=== PATIENT | female | born 1955 | race African-American/Black ===

== ENCOUNTER 2021-10-08 10:53 | Emergency (ER) | payer MEDICARE, OTHER, SELFPAY ==
--- NOTE | ~2021-10-08 | XR_ITS ---
EXAMINATION: XR chest 2V DATE: 10/08/2021 11:24 INDICATION: Shortness of breath and cough TECHNIQUE: PA and lateral views of the chest are obtained. COMPARISON: None available FINDINGS: The lungs are free of acute opacities. There is no pleural effusion or pneumothorax. The ca rdiomediastinal silhouette is normal. There is moderate thoracic spondylosis. Surgical clips in the r ight upper quadrant are likely from prior cholecystectomy. Retained neurostimulator leads are present in the central spinal canal of the thoracic spine. IMPRESSION: 1. No acute cardiopulmonary abnormality. Reviewed, dictated and finalized at location A. NSED CLINICAL PSYCHOLOGIST
[2021-10-08 10:56] VITALS: BP 198/118; PULSE 119; RESP 22; TEMP 37.8; O2SAT 99
--- NOTE | 2021-10-08 10:58 | ECG_ITS ---
Measurements Intervals [place] Rate: 93 P: 8 IN: 175 QRS: 30 QRSD: 84 T: 52 QT: 345 QTc: 430 Interpretive Statements SINUS RHYTHM NORMAL ECG Electronically Signed On 10-08-2021 13:23:57 HANDICAPPED TEACHER by Luis Felipe Azul D.O.
[2021-10-08 11:32] LABS: Basophils Percent Auto 0.6 % (0.2-1.2); Eosinophils Absolute Auto 0.1 K/mm3 (0-0.3); Eosinophils Percent Auto 1.7 % (0-4.4); Hematocrit 36.1 % (37.0-47.0); Hemoglobin 12.2 g/dL (12.0-15.0); Immature Granulocyte Absolute 0.02 K/mm3 (0.00-0.031); Immature Granulocyte Percent A 0.4 % (0-0.5); Lymphocytes Percent Auto 29.7 % (18.3-44.2); Mean Corpuscular HGB Conc 33.8 g/dl (32-36); Mean Corpuscular Volume 97.6 fl (80-100); Mean Platelet Volume 8.6 fl (7.4-10.4); Monocytes Absolute Auto 0.7 K/mm3 (0.1-0.6); Neutrophils Percent Auto 54.6 % (45.5-73.1); Platelet Count Result 219 k/mm3 (150-375); Red Cell Distribution Width 13.7 % (11.5-14.5); White Blood Count 5.4 K/mm3 (4.5-10.0)
[2021-10-08 11:42] LABS: INR 0.9; Prothrombin Time 12.4 Seconds (11.1-14.7)
[2021-10-08 11:46] LABS: Alanine Aminotransferase 21 U/L (4-35); Albumin Level 4.2 g/dL (3.5-5.1); Alkaline Phosphatase 93 U/L (38-126); Anion Gap 6 mmol/L (8-16); Aspartate Amino Transferase 38 U/L (14-36); Bilirubin,Total 0.3 mg/dL (0.2-1.3); Blood Urea Nitrogen 11 mg/dL (7-17); Calcium 9.5 mg/dL (8.4-10.2); Carbon Dioxide 32 mmol/L (22-30); Chloride 101 mmol/L (98-107); Estimated CRCL calculation 69 ml/min; Estimated Glomerular Filt Rate > 60; Glucose 93 mg/dL (65-110); Potassium 3.6 mmol/L (3.4-5.0); Sodium 139 mmol/L (137-145)
[2021-10-08 12:13] VITALS: BP 132/85; PULSE 92; RESP 17; O2SAT 98
[2021-10-08] MEDS: SODIUM CHLORIDE 0.9% IV 1,000 ML 999 ML IV CONT (12:21)
[2021-10-08] MEDS: ACETAMINOPHEN 500 MG TABLET 1000 MG PO (12:21)
[2021-10-08 14:09] VITALS: BP 121/74; PULSE 83; RESP 22; O2SAT 100
--- NOTE | 2021-10-08 14:19 | ED.FEVER ---
HPI - Fever General Chief Complaint: Fever Stated Complaint: fever,vomiting, sob Time Seen by Provider: 10/08/21 11:52 History of Present Illness HPI Narrative: Patient is a 66-year-old female who presents ER with cold symptoms. Reports over the last 4 days she has been having runny nose with sore throat and productive cough. She has been having subjective fevers and chills. She has been exposed to 2 of her grandchildren who were sick. They were sent home from school twice due to illness. They have been swabbed for Covid and were negative. Patient has been vaccinated for Covid but has not yet received a booster shot. She has no loss of taste or smell. Patient endorses that she has been having vomiting but no diarrhea. Related Data Allergies Allergy/AdvReac Type Severity Reaction Status Date / Time tetracycline Allergy Unknown Swelling Verified 10/08/21 11:14 Review of Systems Review of Systems: All systems reviewed & are unremarkable except as noted in HPI and below Constitutional: Constitutional: Reports chills, Reports fatigue and Reports fever(s) ENT: Reports nasal congestion and Reports sore throat Cardiovascular: Cardiovascular: Denies chest pain, Denies rapid heart rate and Denies radiating jaw, neck or arm pain Respiratory: Respiratory: Reports cough, Denies dyspnea and Denies wheezing Gastrointestinal: Gastrointestinal: Denies abdominal pain, Denies diarrhea, Reports nausea and Reports vomiting Genitourinary: Genitourinary: Denies dysuria and Denies flank pain PMFSH Past Medical History Medical History (Updated 10/08/21 @ 14:51 by Haroldo Lainez MD) DVT (deep venous thrombosis) GERD (gastroesophageal reflux disease) Surgical History Surgical History (Updated 10/08/21 @ 14:22 by Haroldo Lainez MD) History of back surgery History of cholecystectomy History of hysterectomy Social History Social History (Updated 10/08/21 @ 14:22 by Haroldo Lainez MD) Smoking status: Never smoker Exam Narrative: GENERAL: Well-appearing, well-nourished, and in no acute distress. HEAD: Normocephalic, atraumatic. EYES: PERRL and EOMI. CHEST: Clear to auscultation. No respiratory distress. HEART: Regular rate and rhythm. Normal peripheral pulses. ABDOMEN: Soft, nontender, nondistended. EXTREMITIES: Normal range of motion. No edema. SKIN: Warm, dry, no rash. NEURO: Alert and oriented x3. PSYCH: Normal mood and affect. Course Course Emergency Course: Patient feels improved with Tylenol and IV fluid. Swab for Covid. Discussed that she should self isolate until she has a negative Covid test. Patient verbalized understanding. Discharge home. Vital Signs Vital signs: Vital Signs Temperature 100.1 F H 10/08/21 10:56 Pulse Rate 119 H 10/08/21 10:56 Respiratory Rate 22 H 10/08/21 10:56 Blood Pressure 198/118 H 10/08/21 10:56 Pulse Oximetry 99 10/08/21 10:56 Temperature 100.1 F H 10/08/21 10:56 Pulse Rate 83 10/08/21 14:09 Respiratory Rate 22 H 10/08/21 14:09 Blood Pressure 121/74 10/08/21 14:09 Pulse Oximetry 100 10/08/21 14:09 MDM - Fever Lab Data Result diagrams: 10/08/21 11:26 10/08/21 11:26 Labs: Lab Results 10/08/21 10/08/21 10/08/21 Range/Units 11:26 11:26 11:26 WBC 5.4 (4.5-10.0) K/mm3 RBC 3.70 L (4.2-5.4) M/mm3 Hgb 12.2 (12.0-15.0) g/dL Hct 36.1 L (37.0-47.0) % MCV 97.6 (80-100) fl MCH 33.0 (26-34) pg MCHC 33.8 (32-36) g/dl RDW 13.7 (11.5-14.5) % Plt Count 219 (150-375) k/mm3 MPV 8.6 (7.4-10.4) fl Immature Gran % (Auto) 0.4 (0-0.5) % Neut % (Auto) 54.6 (45.5-73.1) % Lymph % (Auto) 29.7 (18.3-44.2) % [place] % (Auto) 13.0 H (2.6-8.5) % Eos % (Auto) 1.7 (0-4.4) % Baso % (Auto) 0.6 (0.2-1.2) % Lymph # (Auto) 1.60 (0.9-3.2) K/mm3 [place] # (Auto) 0.7 H (0.1-0.6) K/mm3 Eos # (Auto) 0.1 (0-0.3) K/mm3 Baso # (Auto) 0.0 (0.0
[2021-10-08 15:38] VITALS: BP 121/74; PULSE 80; RESP 18; O2SAT 100
[2021-10-09 20:05] LABS: SARS-CoV-2 RNA PCR Negative
== END 2021-10-08 15:39 | disposition home or self-care (01) ==
PROVIDERS: Emergency Medicine; Emergency Provider Emergency Medicine
DX: B34.9 Viral infection, unspecified (principal); Z20.822 Contact with and (suspected) exposure to COVID-19; K21.9 Gastro-esophageal reflux disease without esophagitis; Z86.718 Personal history of other venous thrombosis and embolism
CPT/HCPCS: 36415; 71046; 80053; 85025; 85610; 85730; 93005; 96360; 99284; A9270; C9803; J7030; U0003; U0005

== ENCOUNTER 2021-11-09 11:59 | Emergency (ER) | payer MEDICARE, OTHER, SELFPAY ==
[2021-11-09 12:12] VITALS: BP 156/98; PULSE 121; RESP 27; TEMP 37.4; O2SAT 92
[2021-11-09] MEDS: ONDANSETRON HCL ODT 4 MG TABLET PO (13:53)
[2021-11-09] MEDS: diazePAM (*CRX) 5 MG TABLET PO (13:53)
[2021-11-09] MEDS: HYDROmorphone HCL INJ (*CRX) 1 MG/ML SYR IM (13:54)
[2021-11-09 13:55] VITALS: BP 138/85; PULSE 101; RESP 26; O2SAT 100
--- NOTE | 2021-11-09 14:20 | ED.GENADULT ---
HPI - General Adult General Chief complaint: Back Pain/Injury Stated complaint: stiff neck, head, and fever Time Seen by Provider: 11/09/21 12:47 Source: patient Mode of arrival: ambulatory Limitations: no limitations History of Present Illness HPI narrative: Patient is 66 years old -[place] female presents with generalized back pain. Patient had 9 back surgery over years. Patient had a lot of physical work for the [employer] with a lot of cooking, standing and bending 1 day later patient developed diffuse back pain worse with any movement, better remaining still. Patient denying any fever chills, nausea vomiting, patient is fully vaccinated and boosted for COVID-19. Tested negative for Covid 2 days ago. Patient denies radiation of pain, chest pain, shortness of breath, headache. Currently patient on [place] and Flexeril Related Data Allergies Allergy/AdvReac Type Severity Reaction Status Date / Time tetracycline Allergy Unknown Swelling Verified 11/09/21 12:55 Review of Systems Review of Systems: CONSTITUTIONAL: Denies fever, chills, or sweats. EYES: Denies visual changes, redness, or discharge. ENT: Denies rhinorrhea, congestion, sore throat, or otalgia. CARDIOVASCULAR: Denies chest pain, palpitations, or edema. RESPIRATORY: Denies cough or dyspnea. GASTROINTESTINAL: Denies abdominal pain, nausea, vomiting, or diarrhea. GENITOURINARY: Denies dysuria or hematuria. SKIN: Denies rash or itching. MUSCULOSKELETAL: Denies back pain, joint pain, or myalgia. NEUROLOGIC: Denies headache, numbness, or weakness. PSYCHIATRIC: Denies anxiety or depression. PMFSH Past Medical History Medical History DVT (deep venous thrombosis) GERD (gastroesophageal reflux disease) Surgical History Surgical History History of back surgery History of cholecystectomy History of hysterectomy Social History Social History Smoking status: Never smoker Exam Narrative: General appearance: Well-developed, well-nourished Skin: Normal color Head: Normocephalic, nontraumatic Eyes: Clear conjunctiva ENT: Oropharynx normal, ears normal, nose normal Neck: Supple, nontender Chest and respiratory: Airway patent, no respiratory distress, no accessory muscle use Heart: Regular rate/rhythm Abdomen: Soft, nontender, no organomegaly, quiet bowel sounds Vascular: Normal peripheral pulses, normal capillary refill. Musculoskeletal: Generalized severe tenderness all over the back with light touch. No bruises, no swelling, no rash Neurologic: Alert and oriented ?3, STOVE CARRIAGE OPERATOR is normal as tested, no gross motor deficit Course Course Emergency Course: Improving Vital Signs Vital signs: Vital Signs Temperature 37.4 C 11/09/21 12:12 Pulse Rate 121 H 11/09/21 12:12 Respiratory Rate 27 H 11/09/21 12:12 Blood Pressure 156/98 H 11/09/21 12:12 Pulse Oximetry 92 11/09/21 12:12 Temperature 37.4 C 11/09/21 12:12 Pulse Rate 101 H 11/09/21 13:55 Respiratory Rate 26 H 11/09/21 13:55 Blood Pressure 138/85 11/09/21 13:55 Pulse Oximetry 100 11/09/21 13:55 Medical Decision Making MDM Narrative Medical decision making narrative: Musculoskeletal pain Vital Signs Vital Signs: Vital Signs Temperature 37.4 C 11/09/21 12:12 Pulse Rate 121 H 11/09/21 12:12 Respiratory Rate 27 H 11/09/21 12:12 Blood Pressure 156/98 H 11/09/21 12:12 Pulse Oximetry 92 11/09/21 12:12 Temperature 37.4 C 11/09/21 12:12 Pulse Rate 101 H 11/09/21 13:55 Respiratory Rate 26 H 11/09/21 13:55 Blood Pre
== END 2021-11-09 15:00 | disposition home or self-care (01) ==
PROVIDERS: Emergency Provider Emergency Medicine
DX: M54.9 Dorsalgia, unspecified (principal); Z86.718 Personal history of other venous thrombosis and embolism; K21.9 Gastro-esophageal reflux disease without esophagitis
CPT/HCPCS: 96372; 99283; A9270; J1170

== ENCOUNTER 2021-12-04 14:06 | Emergency (ER) | payer MEDICARE, OTHER, SELFPAY ==
[2021-12-04 14:21] VITALS: BP 159/85; PULSE 82; RESP 16; TEMP 36.6; O2SAT 100
== END 2021-12-04 15:40 | disposition left against medical advice (07) ==
LOC: ANHED 15:46
DX: S91.001A Unspecified open wound, right ankle, initial encounter (principal)
CPT/HCPCS: 99199

== ENCOUNTER 2022-02-21 03:05 | Emergency (ER) | payer MEDICARE, OTHER, SELFPAY ==
[2022-02-21 03:02] VITALS: BP 143/90; PULSE 122; RESP 20; TEMP 37.6; O2SAT 97
--- NOTE | 2022-02-21 03:13 | ED.BACK ---
HPI - Back Pain/Injury General Chief Complaint: Back Pain/Injury Stated Complaint: EXTREME BACK PAIN Source: patient and EMS Mode of arrival: EMS Limitations: no limitations History of Present Illness HPI Narrative: 66-year-old female brought in by ambulance secondary to pain in her back. She has had 9 back surgeries. She takes [place] up to every 6 hours to help control her pain on a chronic basis. She states today she all of a sudden had increased pain throughout her back with spasm. She denies any recent trauma or falls. Skin no pain rating down her leg. Denies any urinary bladder complaints associated with this. EMS could not get an IV established subsequently given morphine 6 mg IM prior to arrival. When she arrived here she was still having significant pain. Related Data Allergies Allergy/AdvReac Type Severity Reaction Status Date / Time tetracycline Allergy Unknown Swelling Verified 11/09/21 12:55 Review of Systems Review of Systems: CONSTITUTIONAL: Denies fever, chills, or sweats. EYES: Denies visual changes, redness, or discharge. ENT: Denies rhinorrhea, congestion, sore throat, or otalgia. CARDIOVASCULAR: Denies chest pain, palpitations, or edema. RESPIRATORY: Denies cough or dyspnea. GASTROINTESTINAL: Denies abdominal pain, nausea, vomiting, or diarrhea. GENITOURINARY: Denies dysuria or hematuria. SKIN: Denies rash or itching. MUSCULOSKELETAL: Significant pain in her pack. No pain into her extremities. NEUROLOGIC: Denies headache, numbness, or weakness. PSYCHIATRIC: Denies anxiety or depression. PMFSH Past Medical History Medical History DVT (deep venous thrombosis) GERD (gastroesophageal reflux disease) Surgical History Surgical History History of back surgery History of cholecystectomy History of hysterectomy Social History Social History Smoking status: Never smoker Exam Narrative: APPEARANCE: Well appearing, no pain or distress, well-nourished. Head normocephalic and atraumatic. EYES: PERRLA/EOMI, conjunctivae very clear. NOSE: Normal with no drainage EARS:TMS clear Rachel Batista, with good light reflex. THROAT: Pharynx clear, no exudate. NECK: Supple. No adenopathy, no masses. RESPIRATORY: Airway patent, respirations nonlabored. Clear to auscultation bilaterally, no rales, rhonchi, wheezing. CARDIOVASCULAR: Regular rate and rhythm without murmurs, rubs, or gallops. ABDOMINAL: Soft, nontender, nondistended, no hepatosplenomegaly Musculoskeletal: Tenderness palpation throughout the lower thoracic and upper lumbar region. NEURO: Alert. Cranial nerves II through XII intact. Normal gait. Good coordination. Nonfocal examination. SKIN:: Warm, dry. Normal Color PSYCHIATRIC: Normal affect/mood, normal interaction Course Reevaluation(s) Reevaluation #1: Reevaluated the patient and she is much more calm and her pain is starting to slide at this point. Date: 02/21/22 Time: 03:54 Vital Signs Vital signs: Vital Signs Temperature 99.6 F 02/21/22 03:02 Pulse Rate 122 H 02/21/22 03:02 Respiratory Rate 20 02/21/22 03:02 Blood Pressure 143/90 H 02/21/22 03:02 Pulse Oximetry 97 02/21/22 03:02 Temperature 99.6 F 02/21/22 03:02 Pulse Rate 123 H 02/21/22 04:15 Respiratory Rate 18 02/21/22 04:15 Blood Pressure 150/77 H 02/21/22 04:15 Pulse Oximetry 95 02/21/22 04:15 MDM - Back Pain/Injury MDM Narrative Medical decision making narrative: Patient got significant relief of the pain with the medication she was given. She is eager to go home at this time. She does have a cane at home but I advised her to get a walker to help stabilize her self. She is to continue her current home medications. Differential Diagnosis Differential diagnosis: Likely strain of lumbar region and thoracic back pain Discharge Plan Discharge
[2022-02-21] MEDS: MORPHINE SULFATE (*CRX) 4 MG/ML INJ IV PUSH (04:01)
[2022-02-21] MEDS: diazePAM (*CRX) 5 MG TABLET PO (04:07)
[2022-02-21 04:15] VITALS: BP 150/77; PULSE 123; RESP 18; O2SAT 95
[2022-02-21 05:23] VITALS: BP 152/70; PULSE 104; RESP 20; O2SAT 97
== END 2022-02-21 05:29 | disposition home or self-care (01) ==
PROVIDERS: Emergency Provider Emergency Medicine
DX: M54.6 Pain in thoracic spine (principal); Z86.718 Personal history of other venous thrombosis and embolism; K21.9 Gastro-esophageal reflux disease without esophagitis
CPT/HCPCS: 96374; 96375; 99284; A9270; J1100; J2270

== ENCOUNTER 2022-04-20 20:29 | Emergency (ER) | payer MEDICARE, OTHER, SELFPAY ==
[2022-04-20 20:36] VITALS: BP 165/93; PULSE 118; RESP 20; TEMP 36.3; O2SAT 100
[2022-04-20 22:09] VITALS: BP 136/88; PULSE 106; RESP 17; O2SAT 100
--- NOTE | 2022-04-20 22:59 | ED.GENADULT ---
HPI - General Adult General Chief complaint: Unspecified Stated complaint: bilateral leg swelling Time Seen by Provider: 04/20/22 22:10 Source: patient History of Present Illness HPI narrative: Patient presents with lower extremity edema. Reports a recent admission to [facility]. She had a blood infection and treated in the hospital for approximately 2 weeks. In she was discharged to rehab facility for strengthening. She was discharged home about a week ago was doing home rehab and prominently doing well. Yesterday she noted swelling in her legs and it seems worse today so she came to the ER for further evaluation. She denies any chest pain or shortness of breath denies any fevers cough or congestion. She does report a history of DVTs but is on Eliquis reports is very good about taking her medications. Patient reports she was previously on furosemide but she was discontinued that when she left the hospital. She denies prior history of heart failure. Related Data Allergies Allergy/AdvReac Type Severity Reaction Status Date / Time tetracycline Allergy Unknown Swelling Verified 04/20/22 22:10 pancrelipase Allergy Other Verified 04/20/22 22:10 fentanyl AdvReac Confusion Verified 04/20/22 22:10 Review of Systems Review of Systems: CONSTITUTIONAL: Denies fever, chills, or sweats. EYES: Denies visual changes, redness, or discharge. ENT: Denies rhinorrhea, congestion, sore throat, or otalgia. CARDIOVASCULAR: Denies chest pain, palpitations, or edema. RESPIRATORY: Denies cough or dyspnea. GASTROINTESTINAL: Denies abdominal pain, nausea, vomiting, or diarrhea. GENITOURINARY: Denies dysuria or hematuria. SKIN: Denies rash or itching. MUSCULOSKELETAL: Denies back pain, joint pain, or myalgia. NEUROLOGIC: Denies headache, numbness, dizziness, or weakness. PSYCHIATRIC: Denies anxiety or depression. All systems reviewed & are unremarkable except as noted in HPI and below PMFSH Past Medical History Medical History DVT (deep venous thrombosis) GERD (gastroesophageal reflux disease) Surgical History Surgical History History of back surgery History of cholecystectomy History of hysterectomy Social History Social History Smoking status: Never smoker Exam Narrative: GENERAL: Well-appearing, well-nourished, and in no acute distress. HEAD: Normocephalic, atraumatic. EYES: PERRLA and EOMI. ENT: Nares clear, no rhinorrhea or epistaxis. Mucous membranes moist. NECK: Supple. No masses. No JVD CHEST: Clear to auscultation. No respiratory distress. No wheezes rales or rhonchi HEART: Regular rate and rhythm. No murmur heard. Normal peripheral pulses. ABDOMEN: Soft, nontender, nondistended, normal active bowel sounds. EXTREMITIES: Normal range of motion. 1+ pitting edema symmetric to the distal lower leg SKIN: Warm, dry, no rash. NEURO: No focal deficits. Alert and oriented x3. PSYCH: Normal mood and affect. Course Reevaluation(s) Reevaluation #1: Patient resting comfortably results and plan reviewed with patient. Patient is comfortable outpatient plan. Patient was previous aware of her anemia history she is currently on iron. Date: 04/20/22 Time: 23:32 Vital Signs Vital signs: Vital Signs Temperature 36.3 C L 04/20/22 20:36 Pulse Rate 118 H 04/20/22 20:36 Respiratory Rate 20 04/20/22 20:36 Blood Pressure 165/93 H 04/20/22 20:36 Pulse Oximetry 100 04/20/22 20:36 Oxygen Delivery Room Air 04/20/22 20:36 Temperature 36.3 C L 04/20/22 20:36 Pulse Rate 95 04/20/22 23:32 Respiratory Rate 18 04/20/22 23:32 Blood Pressure 123/90 04/20/22 23:32 Pulse Oximetry 97 04/20/22 23:32 Oxygen Delivery Room Air 04/20/22 20:36 Medical Decision Making MDM Narrative Medical decision making narrative: H&P as above, vs initia
[2022-04-20 23:00] LABS: Basophils Percent Auto 0.2 % (0.2-1.2); Eosinophils Absolute Auto 0.1 K/mm3 (0-0.3); Eosinophils Percent Auto 1.6 % (0-4.4); Hematocrit 29.5 % (37.0-47.0); Hemoglobin 8.9 g/dL (12.0-15.0); Immature Granulocyte Absolute 0.01 K/mm3 (0.00-0.031); Immature Granulocyte Percent A 0.2 % (0-0.5); Lymphocytes Absolute Auto 1.83 K/mm3 (0.9-3.2); Lymphocytes Percent Auto 40.7 % (18.3-44.2); Mean Corpuscular HGB Conc 30.2 g/dl (32-36); Mean Corpuscular Hemoglobin 30.7 pg (26-34); Mean Corpuscular Volume 101.7 fl (80-100); Monocytes Absolute Auto 0.5 K/mm3 (0.1-0.6); Neutrophils Absolute Auto 2.1 K/mm3 (1.3-6.7); Neutrophils Percent Auto 47.3 % (45.5-73.1); Platelet Count Result 245 k/mm3 (150-375); Red Cell Distribution Width 15.9 % (11.5-14.5); White Blood Count 4.5 K/mm3 (4.5-10.0)
[2022-04-20 23:12] LABS: Alanine Aminotransferase 15 U/L (6-35); Albumin Level 3.6 g/dL (3.5-5.1); Alkaline Phosphatase 83 U/L (38-126); Anion Gap 4 mmol/L (8-16); Aspartate Amino Transferase 33 U/L (14-36); Bilirubin,Total 0.1 mg/dL (0.2-1.3); Blood Urea Nitrogen 14 mg/dL (7-17); Calcium 8.7 mg/dL (8.4-10.2); Carbon Dioxide 29 mmol/L (22-30); Chloride 103 mmol/L (98-107); Estimated Glomerular Filt Rate > 60; Glucose 93 mg/dL (65-110); Potassium 3.7 mmol/L (3.4-5.0); Sodium 136 mmol/L (137-145)
--- NOTE | 2022-04-20 23:31 | PC.NURSE ---
Assuming care of pt.
[2022-04-20 23:32] VITALS: BP 123/90; PULSE 95; RESP 18; O2SAT 97
== END 2022-04-21 00:12 | disposition home or self-care (01) ==
PROVIDERS: Emergency Provider Emergency Medicine; PCP Family Medicine Sports Medicine
DX: R60.0 Localized edema (principal); Z86.718 Personal history of other venous thrombosis and embolism; K21.9 Gastro-esophageal reflux disease without esophagitis
CPT/HCPCS: 36415; 80053; 85025; 99283

== ENCOUNTER 2022-04-27 11:43 | Outpatient (CLI) | payer MEDICARE, OTHER, SELFPAY ==
[2022-04-27 12:26] LABS: Basophils Percent Auto 0.3 % (0.2-1.2); Eosinophils Absolute Auto 0.1 K/mm3 (0-0.3); Eosinophils Percent Auto 1.3 % (0-4.4); Hematocrit 29.9 % (37.0-47.0); Hemoglobin 9.1 g/dL (12.0-15.0); Immature Granulocyte Absolute 0.01 K/mm3 (0.00-0.031); Immature Granulocyte Percent A 0.3 % (0-0.5); Lymphocytes Absolute Auto 1.49 K/mm3 (0.9-3.2); Lymphocytes Percent Auto 40.1 % (18.3-44.2); Mean Corpuscular HGB Conc 30.4 g/dl (32-36); Mean Corpuscular Hemoglobin 30.8 pg (26-34); Mean Corpuscular Volume 101.4 fl (80-100); Mean Platelet Volume 8.3 fl (7.4-10.4); Monocytes Absolute Auto 0.4 K/mm3 (0.1-0.6); Monocytes Percent Auto 9.7 % (2.6-8.5); Neutrophils Absolute Auto 1.8 K/mm3 (1.3-6.7); Neutrophils Percent Auto 48.3 % (45.5-73.1); Platelet Count Result 273 k/mm3 (150-375); Red Blood Count 2.95 M/mm3 (4.2-5.4); Red Cell Distribution Width 16.8 % (11.5-14.5); White Blood Count 3.7 K/mm3 (4.5-10.0)
[2022-04-27 12:28] LABS: Alanine Aminotransferase 11 U/L (6-35); Albumin Level 3.5 g/dL (3.5-5.1); Alkaline Phosphatase 80 U/L (38-126); Anion Gap 4 mmol/L (8-16); Aspartate Amino Transferase 29 U/L (14-36); Bilirubin,Total 0.1 mg/dL (0.2-1.3); Blood Urea Nitrogen 7 mg/dL (7-17); Calcium 8.4 mg/dL (8.4-10.2); Carbon Dioxide 30 mmol/L (22-30); Chloride 105 mmol/L (98-107); Estimated Glomerular Filt Rate > 60; Glucose 88 mg/dL (65-110); Potassium 3.6 mmol/L (3.4-5.0); Sodium 139 mmol/L (137-145)
[2022-04-27 12:39] LABS: Iron 52 ug/dL (37-170)
[2022-04-27 12:48] LABS: Percent Iron Saturation 26 % (20-50)
== END 2022-04-27 11:44 | disposition home or self-care (01) ==
PROVIDERS: PCP Family Medicine Sports Medicine; Visit Provider Family Medicine Sports Medicine
DX: Z01.89 Encounter for other specified special examinations (principal); I10 Essential (primary) hypertension; D50.8 Other iron deficiency anemias
CPT/HCPCS: 36415; 80053; 83540; 83550; 85025

== ENCOUNTER 2022-07-25 11:30 | Outpatient (CLI) | payer MEDICARE, OTHER, SELFPAY ==
[2022-07-25 12:28] LABS: Anion Gap 11 mmol/L (8-16); Blood Urea Nitrogen 12 mg/dL (7-17); Calcium 9.6 mg/dL (8.4-10.2); Carbon Dioxide 28 mmol/L (22-30); Chloride 101 mmol/L (98-107); Estimated Glomerular Filt Rate > 60; Glucose 87 mg/dL (65-110); Potassium 3.4 mmol/L (3.4-5.0); Sodium 140 mmol/L (137-145)
== END 2022-07-25 11:31 | disposition home or self-care (01) ==
PROVIDERS: PCP Family Medicine Sports Medicine; Visit Provider Family Medicine Sports Medicine
DX: I82.5Z1 Chronic embolism and thrombosis of unspecified deep veins of right distal lower extremity (principal); M51.36 Other intervertebral disc degeneration, lumbar region; I25.10 Atherosclerotic heart disease of native coronary artery without angina pectoris; M43.17 Spondylolisthesis, lumbosacral region; Z79.01 Long term (current) use of anticoagulants; M54.42 Lumbago with sciatica, left side; M54.41 Lumbago with sciatica, right side; G89.29 Other chronic pain; I70.0 Atherosclerosis of aorta; I86.8 Varicose veins of other specified sites; M35.9 Systemic involvement of connective tissue, unspecified; I48.91 Unspecified atrial fibrillation
CPT/HCPCS: 36415; 80048

== ENCOUNTER 2022-08-07 11:11 | Outpatient (CLI) | payer MEDICARE, OTHER, SELFPAY ==
[2022-08-07 12:16] LABS: Anion Gap 17 mmol/L (8-16); Blood Urea Nitrogen 14 mg/dL (7-17); Calcium 9.3 mg/dL (8.4-10.2); Carbon Dioxide 19 mmol/L (22-30); Chloride 104 mmol/L (98-107); Estimated Glomerular Filt Rate > 60; Glucose 79 mg/dL (65-110); Potassium 4.7 mmol/L (3.4-5.0); Sodium 140 mmol/L (137-145)
== END 2022-08-07 11:12 | disposition home or self-care (01) ==
LOC: ANHLAB 11:17
PROVIDERS: PCP Family Medicine Sports Medicine
DX: I10 Essential (primary) hypertension (principal)
CPT/HCPCS: 36415; 80048; 83735

== ENCOUNTER 2023-08-12 11:22 | Outpatient (CLI) | payer MEDICARE, OTHER, SELFPAY ==
[2023-08-12 12:05] LABS: Basophils Percent Auto 0.4 % (0.2-1.2); Eosinophils Absolute Auto 0.1 K/mm3 (0-0.3); Eosinophils Percent Auto 2.7 % (0-4.4); Hematocrit 35.7 % (37.0-47.0); Lymphocytes Absolute Auto 1.36 K/mm3 (0.9-3.2); Lymphocytes Percent Auto 51.7 % (18.3-44.2); Mean Corpuscular HGB Conc 30.8 g/dl (32-36); Mean Corpuscular Hemoglobin 31.3 pg (26-34); Mean Corpuscular Volume 101.4 fl (80-100); Mean Platelet Volume 8.6 fl (7.4-10.4); Monocytes Absolute Auto 0.3 K/mm3 (0.1-0.6); Monocytes Percent Auto 10.6 % (2.6-8.5); Neutrophils Absolute Auto 0.9 K/mm3 (1.3-6.7); Neutrophils Percent Auto 34.6 % (45.5-73.1); Platelet Count Result 185 k/mm3 (150-375); Red Blood Count 3.52 M/mm3 (4.2-5.4); Red Cell Distribution Width 14.4 % (11.5-14.5); White Blood Count 2.6 K/mm3 (4.5-10.0)
[2023-08-12 12:15] LABS: Alanine Aminotransferase 23 U/L (6-35); Albumin Level 4.1 g/dL (3.5-5.1); Alkaline Phosphatase 91 U/L (38-126); Anion Gap 7 mmol/L (8-16); Aspartate Amino Transferase 41 U/L (14-36); Bilirubin,Total 0.5 mg/dL (0.2-1.3); Blood Urea Nitrogen 21 mg/dL (7-17); Carbon Dioxide 27 mmol/L (22-30); Chloride 101 mmol/L (98-107); Cholesterol 179 mg/dL (0-200); Estimated Glomerular Filt Rate > 60; Glucose 97 mg/dL (65-110); HDL Direct 45 mg/dL; Potassium 4.2 mmol/L (3.4-5.0); Sodium 135 mmol/L (137-145); Triglycerides 127 mg/dL (<150)
[2023-08-12 12:26] LABS: LDL Cholesterol Direct 85 mg/dL
[2023-08-12 13:03] LABS: Iron 91 ug/dL (37-170)
[2023-08-12 13:12] LABS: Percent Iron Saturation 40 % (20-50)
== END 2023-08-12 11:23 | disposition home or self-care (01) ==
LOC: ANHLAB 11:26
PROVIDERS: PCP Family Medicine Sports Medicine; Visit Provider Family Medicine Sports Medicine
DX: R11.0 Nausea (principal); Z13.6 Encounter for screening for cardiovascular disorders; K22.719 Barrett's esophagus with dysplasia, unspecified; G43.901 Migraine, unspecified, not intractable, with status migrainosus; M51.36 Other intervertebral disc degeneration, lumbar region; M54.42 Lumbago with sciatica, left side; M54.41 Lumbago with sciatica, right side; G89.29 Other chronic pain; M79.606 Pain in leg, unspecified; I83.91 Asymptomatic varicose veins of right lower extremity; K63.5 Polyp of colon; I25.10 Atherosclerotic heart disease of native coronary artery without angina pectoris; I10 Essential (primary) hypertension
CPT/HCPCS: 36415; 80053; 80061; 82728; 83540; 83550; 85025

== ENCOUNTER 2023-12-31 18:23 | Emergency (ER) | payer MEDICARE, OTHER, SELFPAY ==
--- NOTE | ~2023-12-31 | US_ITS ---
EXAMINATION: US venous doppler LE RT DATE: 12/31/2023 19:54 INDICATION: Right lower limb pain. TECHNIQUE: Grayscale ultrasound images without and with compression and Doppler ultrasound images of the right lower extremity veins were obtained. COMPARISON: None. FINDINGS: The visualized portions of right common femoral vein, profunda (deep) femoral vein, femoral vein, pop liteal vein, peroneal veins, posterior tibial veins, and greater saphenous vein outflow are patent. IMPRESSION: 1. No deep venous thrombosis. Reviewed, dictated and finalized at location E. [employer]
[2023-12-31 18:30] VITALS: BP 148/100; PULSE 99; RESP 18; TEMP 36.8; O2SAT 100
--- NOTE | 2023-12-31 18:37 | ED.EXTPRO ---
HPI - Extremity Problem General Chief complaint: Skin/Abscess/Foreign Body <Evelia Ruggiero PA-C - Last Filed: 01/01/24 18:46> Stated complaint: wound to leg <Evelia Ruggiero PA-C - Last Filed: 01/01/24 18:46> Time Seen by Provider: 12/31/23 18:37 <Evelia Ruggiero PA-C - Last Filed: 01/01/24 18:46> Focused HPI: This is a 68 year old female that presents to the ER for right lower extremity pain. Associated with swelling. Reports history of DVT. She also has a wound on this leg that she is following with a doctor for currently and receiving wound care. Denies fever, erythema or abnormal drainage. GENERAL: Well-appearing, well-nourished, and in no acute distress. HEAD: Normocephalic, atraumatic. CHEST: Clear to auscultation. ?No respiratory distress. HEART: Regular rate and rhythm.? NEURO: ?Alert and oriented x3. Patient screened in triage and initial orders placed.? ?Additional care and disposition to be based upon?diagnostic testing and treatment. <Evelia Ruggiero PA-C - Last Filed: 01/01/24 18:46> History of Present Illness HPI Narrative: 68-year-old female present to the emergency department for evaluation of right lower extremity pain. Patient does have a prior history of DVT. Patient is following up with a surgeon for a wound her right lower extremity and did see the surgeon yesterday. Patient states that she was having the leg pain yesterday as well. Patient denies any new falls or injuries. Patient states she does take Thicket at home but ran out of Thicket today. Patient does have follow-up with her primary care physician tomorrow and anticipate she is going to be able to get a Thicket refill from her. <Eric Cevallos MD - Last Filed: 01/04/24 14:06> Related Data Home medications: Home Medications Medication Instructions Recorded Confirmed acetaminophen 650 mg 650 mg PO Q12H 06/13/23 10/16/23 tablet,extended release (Tylenol Arthritis Pain) apixaban 5 mg tablet 5 mg PO BID 06/13/23 10/16/23 cholecalciferol (vitamin D3) 25 25 mcg PO DAILY 06/13/23 10/16/23 mcg (1,000 unit) capsule cranberry 400 mg capsule 400 mg PO DAILY 06/13/23 10/16/23 cyclobenzaprine 10 mg tablet 10 mg PO TID 06/13/23 10/16/23 digestive enzymes 1 cap PO DAILY 06/13/23 10/16/23 docusate sodium 100 mg capsule 100 mg PO DAILY 06/13/23 10/16/23 ferrous sulfate 325 mg (65 mg 325 mg PO DAILY 06/13/23 10/16/23 iron) tablet gabapentin 100 mg capsule 100 mg PO DAILY 06/13/23 10/16/23 hydrocodone 5 mg-acetaminophen 325 1 tablet PO QHS PRN 06/13/23 10/16/23 mg tablet lisinopril 5 mg tablet 5 mg PO DAILY 06/13/23 10/16/23 [id number] tablet PO 06/13/23 10/16/23 fumarate 18 mg-folic acid 400 mcg tablet (One-A-Day Women's Complete) naloxone 0.4 mg/mL injection 0.4 mg IM Q2M PRN 06/13/23 10/16/23 syringe naproxen sodium 220 mg tablet 220 mg PO BID PRN 06/13/23 10/16/23 (Flanax (naproxen)) rosuvastatin 10 mg tablet 10 mg PO DAILY 06/13/23 10/16/23 ondansetron HCl 4 mg tablet 4 mg PO Q8H 10/16/23 10/16/23 torsemide 20 mg tablet 20 mg PO QAM 10/16/23 10/16/23 <Evelia Ruggiero PA-C - Last Filed: 01/01/24 18:46> Allergies/Adverse reactions: Allergies Allergy/AdvReac Type Severity Reaction Status Date / Time tetracycline Allergy Unknown Swelling Verified 10/16/23 10:33 pancrelipase Allergy Other Verified 10/16/23 10:33 fentanyl AdvReac Confusion Verified 10/16/23 10:33 <Evelia Ruggiero PA-C - Last Filed: 01/01/24 18:46> Review of Systems Review of Systems: All systems reviewed & are unremarkable except as noted in HPI and below <Eric Cevallos MD - Last Filed: 01/04/24 14:06> [facility] Past Medical History Medical History: Medical History Adhesive capsulitis of right shoulder DVT (deep venous thrombosis) GERD (gastroesophageal reflux disease) History of sepsis Right rotator cuff tear <MIHIR Francis L
[2023-12-31] MEDS: HYDROcodone/acetaminophen (*CRX) 5-325 MG TABLET 1 TAB (23:59)
== END 2023-12-31 23:50 | disposition home or self-care (01) ==
PROVIDERS: Emergency Provider Emergency Medicine; PCP Nurse Practitioner
DX: M79.604 Pain in right leg (principal); Z86.718 Personal history of other venous thrombosis and embolism
CPT/HCPCS: 93971; 99284; A9270

== ENCOUNTER 2024-03-31 14:04 | Outpatient (CLI) | payer MEDICARE, OTHER, SELFPAY ==
[2024-03-31 15:09] LABS: Basophils Percent Auto 0.3 % (0.2-1.2); Eosinophils Absolute Auto 0.1 K/mm3 (0-0.3); Eosinophils Percent Auto 1.3 % (0-4.4); Hematocrit 36.2 % (37.0-47.0); Hemoglobin 10.8 g/dL (12.0-15.0); Immature Granulocyte Absolute 0.01 K/mm3 (0.00-0.031); Immature Granulocyte Percent A 0.3 % (0-0.5); Lymphocytes Absolute Auto 1.64 K/mm3 (0.9-3.2); Lymphocytes Percent Auto 43.5 % (18.3-44.2); Mean Corpuscular HGB Conc 29.8 g/dl (32-36); Mean Corpuscular Hemoglobin 30.4 pg (26-34); Mean Platelet Volume 8.7 fl (7.4-10.4); Monocytes Absolute Auto 0.5 K/mm3 (0.1-0.6); Monocytes Percent Auto 11.9 % (2.6-8.5); Neutrophils Absolute Auto 1.6 K/mm3 (1.3-6.7); Neutrophils Percent Auto 42.7 % (45.5-73.1); Platelet Count Result 249 k/mm3 (150-375); Red Blood Count 3.55 M/mm3 (4.2-5.4); Red Cell Distribution Width 13.9 % (11.5-14.5); White Blood Count 3.8 K/mm3 (4.5-10.0)
[2024-04-02 21:13] LABS: Vitamin B6 15.1 ng/mL (2.1-21.7)
[2024-04-03 08:27] LABS: Vitamin B1 18 nmol/L (8-30)
== END 2024-03-31 14:05 | disposition home or self-care (01) ==
PROVIDERS: PCP Nurse Practitioner; Visit Provider Nurse Practitioner
DX: L08.9 Local infection of the skin and subcutaneous tissue, unspecified (principal); T14.8XXA Other injury of unspecified body region, initial encounter; X58.XXXA Exposure to other specified factors, initial encounter
CPT/HCPCS: 36415; 82607; 84207; 84425; 85025

== ENCOUNTER 2024-08-04 14:21 | Emergency (ER) | payer MEDICARE, OTHER, SELFPAY ==
--- NOTE | ~2024-08-04 | CT_ITS ---
EXAMINATION: CT pelvis wo con DATE: 08/04/2024 16:53 INDICATION: Low back pain post fall TECHNIQUE: Computed tomography (CT) of the pelvis was performed without intravenous contrast. Automat ed exposure control and iterative reconstruction technique were employed.The dose-length product was 471.28 mGy-cm. COMPARISON: None FINDINGS: Bone alignment is normal. No acute fracture. There is anterior spinal fusion at L5-S1 and posterior s ej fusion at the bilateral L4-5 and L5-S1 facet joints. See separate lumbar spine report for furth er detail. Bone graft harvest site at the right posterior iliac spine. Moderate osteoarthritis at the bilateral sacroiliac and hip joints. Postoperative change of prior ventral hernia mesh repair in the pelvis and lower abdomen. Visualized portions of bowels, lower pole of the right kidney and caudal t ip of the liver are unremarkable. Bladder is normal. The uterus is not identified and has likely been surgically resected. No free intraperitoneal gas or fluid. No pathologically enlarged or abdominal, pelvic or inguinal lymphadenopathy. No free fluid in the pelvis. IMPRESSION: 1. Moderate bilateral hip and sacroiliac osteoarthritis. No acute osseous abnormality. Reviewed, dictated and finalized at location A. IMPRESSION: 1. Moderate bilateral hip and sacroiliac osteoarthritis. No acute osseous abnor mality.
--- NOTE | ~2024-08-04 | CT_ITS ---
CT brain wo con Ordering provider: Pilar Neely PA-C History: 69 years Female with . syncope 07/21 . Comparison: April 19, 2015 Technique: CT of the head without contrast. Radiation reduction technique utilized. The dose-length product was 681 mGy-cm. FINDINGS: BRAIN PARENCHYMA AND CSF SPACES: Possibility of hypodensity in the fei cannot be excluded excluded a lthough this may be artifactual. If concern is present MRI is advised. No midline shift, mass effect or hemorrhage. The brain parenchyma and CSF spaces are otherwise normal. Empty sella turcica. VISUALIZED PARANASAL SINUSES: Well aerated. MASTOIDS: Well aerated. BONES: The bones appear intact. SOFT TISSUES: Visualized nasopharynx is normal. Superficial soft tissues are normal. IMPRESSION: No acute intracranial findings. Possible hypodensity in the fei. If clinically warranted MRI is advised Reviewed, dictated and finalized at location A.
--- NOTE | ~2024-08-04 | CT_ITS ---
EXAMINATION: CTA BRAIN/CAROTID DATE: 08/04/2024 20:29 INDICATION: Pontine abnormality on prior CT. Syncope. TECHNIQUE: Computed tomographic angiography (CTA) of the head and neck was performed with 100 mL Omni paque-350 intravenous contrast. Multiplanar reconstructions and maximum intensity projection 3D-recon structions of the carotid arteries and of the intracranial arteries were created by the technologist on a separate workstation. Automated exposure control and iterative reconstruction technique were emp loyed.The dose-length product was 1027.93 mGy-cm. COMPARISON: None. FINDINGS: Carotid arteries: Visualized aortic arch is normal in caliber with small amount of likely minimally significant atheros clerotic plaque and no dissection. There is minimal atherosclerotic plaque at the right common caroti d bifurcation with 0% stenosis of the right carotid bulb relative to normal distal artery lumen diame ter (NASCET criteria). There is small amount of atherosclerotic plaque with 0% stenosis of the left c arotid bulb relative to normal distal artery lumen diameter. The bilateral extracranial vertebral art eries are codominant with no stenosis. Mild dependent atelectasis in the bilateral lower lobes. Cervi cole soft tissues are unremarkable. Moderate cervical spondylosis. Chronic appearing T4 compression fr acture with 20% anterior vertebral body height loss. Intracranial arteries Vertebral arteries are codominant. There is small amount of nonhemodynamically significant atheroscle rotic plaque at the bilateral carotid siphons and along the bilateral vertebral arteries. There is no hemodynamically significant stenosis in the vertebral, basilar and internal carotid arteries. Verteb ral arteries are codominant. There are no aneurysms identified. Both A1 and P1 segments are patent. Cerebral arterial arborization appears symmetric. No abnormally enhancing brain lesions. IMPRESSION: 1. 0% stenosis of the right and left carotid bulbs relative to normal distal artery lumen diameter (N ASCET criteria). 2. Small amount of nonhemodynamically significant atherosclerotic plaque at the bilateral carotid sip hons and intracranial portions of the bilateral vertebral arteries. No aneurysm, minimally significan t stenosis or thrombosis. 3. No abnormally enhancing brain lesions. Reviewed, dictated and finalized at location A. IMPRESSION: 1. 0% stenosis of the right and left carotid bulbs relative to normal distal ar darian lumen diameter (NASCET criteria). 2. Small amount of nonhemodynamically significant atherosclerotic plaque at the bilateral carotid siphons and intracranial portions of the bilateral vertebral arteries. No aneurysm, minimally significant stenosis or thrombosis. 3. No abnormally enhancing brain lesions.
--- NOTE | ~2024-08-04 | CT_ITS ---
EXAMINATION: CT lumbar spine wo con DATE: 08/04/2024 16:52 INDICATION: Low back pain post fall TECHNIQUE: Computed tomography (CT) of the lumbar spine was performed without intravenous contrast. A utomated exposure control and iterative reconstruction technique were employed. The dose-length produ ct was 574.45 mGy-cm. COMPARISON: 09/02/2017 FINDINGS: Again seen are postoperative changes of prior L5 laminectomy and L5-S1 anterior spinal fusion with so lidly incorporated bone graft material. There is also solid posterior spinal fusion at L4-L5 and L5-S 1. Bone graft harvest site at the right posterior iliac spine. There is mild thoracolumbar kyphosis w ith chronic appearing mild anterior wedging at T11 and T12. Severe disc height loss at T11-T12 and T1 2-L1 with anterior spinal fusion across the T11-T12 disc space. Unchanged 4 mm retrolisthesis L1 on L 2. There is additional chronic mild superior endplate compression fracture at L3 which is new since t he prior study. No acute fractures identified. Moderate disc height loss at T9-T10 and T10-T11. Strea k artifact centered at the nonvisualized portion of the gallbladder fossa suggesting cholecystectomy clips. Small amount of heterotopic ossification in the subcutaneous tissues posterior to the right lo wer lumbar facet joints. Paravertebral soft tissues are otherwise unremarkable. The following disc le vels are specifically discussed: T12-L1: There is mild left and moderate right facet joint osteoarthritis. There is mild left neural f oraminal stenosis. There is no central canal stenosis. L1-L2: There is mild to moderate right and moderate left facet joint osteoarthritis. There is moderat e to severe bilateral neural foraminal stenosis. There is mild central canal stenosis. L2-L3: Disc is bulging with central disc extrusion. There is mild right and mild to moderate left fac et joint osteoarthritis. There is moderate right and moderate to severe left neural foraminal stenosi s. There is moderate central canal stenosis. L3-L4: Disc is bulging. There is moderate bilateral facet joint osteoarthritis. There is moderate dorene ateral neural foraminal stenosis. There is moderate central canal stenosis. L4-L5: Disc is bulging. Facet joints are fused with prominent hypertrophic changes. There is moderate right and mild left neural foraminal stenosis. There is moderate central canal stenosis. L5-S1: Disc space and bilateral facet joints are fused. There is no neural foraminal stenosis. There is no central canal stenosis. IMPRESSION: 1. L5-S1 anterior and L4-S1 posterior spinal fusion. No acute osseous abnormality. 2. Severe spondylosis at the thoracolumbar junction and upper lumbar spine.. Reviewed, dictated and finalized at location A. IMPRESSION: 1. L5-S1 anterior and L4-S1 posterior spinal fusion. No acute osseous abnormali ty. 2. Severe spondylosis at the thoracolumbar junction and upper lumbar spine..
[2024-08-04 14:25] VITALS: BP 144/76; PULSE 80; RESP 14; TEMP 36.2; O2SAT 97
--- NOTE | 2024-08-04 16:19 | ECG_ITS ---
Test Date: 2024-08-04 17:54:31 Measurements Intervals [place] Rate: 79 P: 8 MT: 195 QRS: 51 QRSD: 84 T: 3 QT: 387 QTc: 445 Interpretive Statements SINUS RHYTHM CONSIDER INFERIOR INFARCT, AGE INDETERMINATE BASELINE ARTIFACT- I, II, AVR, AVL, AVF ABNORMAL ECG No previous ECG available for comparison Electronically Signed On 08-04-2024 19:09:30 CDT by Luis Felipe Azul D.O.
[2024-08-04 16:50] VITALS: BP 141/77; PULSE 87; RESP 16; TEMP 36.6; O2SAT 95
--- NOTE | 2024-08-04 17:00 | ED.FALL ---
HPI - Fall General Chief Complaint: Fall <MIHIR Raman Last Filed: 08/04/24 19:35> Stated Complaint: Fall, tailbone pain, takes eliquis <MIHIR Raman Last Filed: 08/04/24 19:35> Time Seen by Provider: 08/04/24 15:47 <MIHIR Raman Last Filed: 08/04/24 19:35> Source: patient <MIHIR Raman Last Filed: 08/04/24 19:35> Mode of arrival: ambulatory <MIHIR Raman Last Filed: 08/04/24 19:35> Limitations: no limitations <MIHIR Raman Last Filed: 08/04/24 19:35> History of Present Illness HPI Narrative: Patient is a 69 y/o female who presents to the ED with c/o lower back pain. Patient reports she had a fall at home on 07/21 in which she stood up from the couch and went to get something out of her refrigerator when she fell backwards. She believes she may have lost consciousness. Unsure if she passed out. Denied feeling dizzy or lightheaded prior to the fall. States she injured her lower back and tailbone in the fall. Has had persistent pain since then. Worse with movement. She has been using a pain patch and a pain cream at home, occasionally taking her home [place] without improvement. She denies any new numbness in her lower extremities, weakness in her lower extremities, bowel or bladder incontinence. Denies any dizziness or lightheadedness since that time. Denies chest pain, shortness of breath. Denies focal weakness or numbness. Patient is on Eliquis due to history of DVT. Is compliant with this. Denies any missed doses. <MIHIR Raman Last Filed: 08/04/24 19:35> Related Data Home Medications: Home Medications Medication Instructions Recorded Confirmed acetaminophen 650 mg 650 mg PO Q12H 06/13/23 10/16/23 tablet,extended release (Tylenol Arthritis Pain) apixaban 5 mg tablet 5 mg PO BID 06/13/23 10/16/23 cholecalciferol (vitamin D3) 25 25 mcg PO DAILY 06/13/23 10/16/23 mcg (1,000 unit) capsule cranberry 400 mg capsule 400 mg PO DAILY 06/13/23 10/16/23 cyclobenzaprine 10 mg tablet 10 mg PO TID 06/13/23 10/16/23 digestive enzymes 1 cap PO DAILY 06/13/23 10/16/23 docusate sodium 100 mg capsule 100 mg PO DAILY 06/13/23 10/16/23 ferrous sulfate 325 mg (65 mg 325 mg PO DAILY 06/13/23 10/16/23 iron) tablet gabapentin 100 mg capsule 100 mg PO DAILY 06/13/23 10/16/23 hydrocodone 5 mg-acetaminophen 325 1 tablet PO QHS PRN 06/13/23 10/16/23 mg tablet lisinopril 5 mg tablet 5 mg PO DAILY 06/13/23 10/16/23 [id number]-[id number] tablet PO 06/13/23 10/16/23 fumarate 18 mg-folic acid 400 mcg tablet (One-A-Day Women's Complete) naloxone 0.4 mg/mL injection 0.4 mg IM Q2M PRN 06/13/23 10/16/23 syringe naproxen sodium 220 mg tablet 220 mg PO BID PRN 06/13/23 10/16/23 (Flanax (naproxen)) rosuvastatin 10 mg tablet 10 mg PO DAILY 06/13/23 10/16/23 ondansetron HCl 4 mg tablet 4 mg PO Q8H 10/16/23 10/16/23 torsemide 20 mg tablet 20 mg PO QAM 10/16/23 10/16/23 <Pilar Neely PA-C - Last Filed: 08/04/24 19:35> Allergies/Adverse Reactions: Allergies Allergy/AdvReac Type Severity Reaction Status Date / Time tetracycline Allergy Unknown Swelling Verified 10/16/23 10:33 pancrelipase Allergy Other Verified 10/16/23 10:33 fentanyl AdvReac Confusion Verified 10/16/23 10:33 <Pilar Neely PA-C - Last Filed: 08/04/24 19:35> Review of Systems Review of Systems: All systems reviewed & are unremarkable except as noted in HPI. <Pilar Neely PA-C - Last Filed: 08/04/24 19:35> All systems reviewed & are unremarkable except as noted in HPI and below <Pilar Neely PA-C - Last Filed: 08/04/24 19:35> [facility] Past Medical History Medical History: Medical History Adhesive capsulitis of right shoulder DVT (deep venous thrombosis) GERD (gastroesophageal reflux diseas
[2024-08-04] MEDS: HYDROcodone/acetaminophen (*CRX) 5-325 MG TABLET 1 TAB PO (17:12)
[2024-08-04 17:52] LABS: Eosinophils Percent Auto 0.9 % (0-4.4); Hematocrit 33.1 % (37.0-47.0); Hemoglobin 10.4 g/dL (12.0-15.0); Immature Granulocyte Absolute 0.01 K/mm3 (0.00-0.031); Immature Granulocyte Percent A 0.3 % (0-0.5); Lymphocytes Absolute Auto 1.59 K/mm3 (0.9-3.2); Lymphocytes Percent Auto 48.3 % (18.3-44.2); Mean Corpuscular HGB Conc 31.4 g/dl (32-36); Mean Corpuscular Hemoglobin 32.4 pg (26-34); Mean Corpuscular Volume 103.1 fl (80-100); Mean Platelet Volume 8.9 fl (7.4-10.4); Monocytes Absolute Auto 0.5 K/mm3 (0.1-0.6); Monocytes Percent Auto 14.9 % (2.6-8.5); Neutrophils Absolute Auto 1.2 K/mm3 (1.3-6.7); Neutrophils Percent Auto 35.6 % (45.5-73.1); Platelet Count Result 234 k/mm3 (150-375); Red Blood Count 3.21 M/mm3 (4.2-5.4); Red Cell Distribution Width 14.7 % (11.5-14.5); White Blood Count 3.3 K/mm3 (4.5-10.0)
[2024-08-04 17:57] LABS: Add Urine Microscopic? NO; Appearance Urine Clear (Clear); Bilirubin Urine Negative (Negative); Blood Urine Negative (Negative); Color Urine Yellow (Yellow); Glucose Urine UA Negative (Negative); Ketones Urine Negative (Negative); Leukocyte Esterase Ur Negative LEU/UL (Negative); Nitrate Urine Negative (Negative); Protein Urine Negative (Negative); Urobilinogen Urine 0.2 mg/dL (<2.0)
[2024-08-04 18:02] LABS: Alanine Aminotransferase 20 U/L (6-35); Albumin Level 4.4 g/dL (3.5-5.1); Alkaline Phosphatase 120 U/L (38-126); Anion Gap 8 mmol/L (4-12); Aspartate Amino Transferase 45 U/L (14-36); Bilirubin,Total 0.3 mg/dL (0.2-1.3); Blood Urea Nitrogen 23 mg/dL (7-17); Calcium 9.2 mg/dL (8.4-10.2); Carbon Dioxide 29 mmol/L (22-30); Chloride 98 mmol/L (98-107); Estimated CRCL calculation 42 ml/min; Estimated Glomerular Filt Rate 60; Glucose 82 mg/dL (65-110); Magnesium 2.4 mg/dL (1.6-2.3); Potassium 3.8 mmol/L (3.4-5.0); Sodium 135 mmol/L (137-145)
[2024-08-04 18:14] LABS: Troponin I < 0.012 ng/mL (0.000-0.034)
[2024-08-04 21:19] VITALS: BP 145/72; PULSE 83; RESP 15; TEMP 36.6; O2SAT 96
== END 2024-08-04 21:21 | disposition home or self-care (01) ==
PROVIDERS: Emergency Provider Physician Assistant; PCP Nurse Practitioner
DX: S39.012A Strain of muscle, fascia and tendon of lower back, initial encounter (principal); S30.0XXA Contusion of lower back and pelvis, initial encounter; Z86.718 Personal history of other venous thrombosis and embolism; Z79.01 Long term (current) use of anticoagulants; K21.9 Gastro-esophageal reflux disease without esophagitis; W18.30XA Fall on same level, unspecified, initial encounter; R94.31 Abnormal electrocardiogram [ECG] [EKG]
CPT/HCPCS: 36415; 70450; 70496; 70498; 72131; 72192; 80053; 81003; 83735; 84484; 85025; 93005; 99284; A9270; Q9967

== ENCOUNTER 2024-10-20 11:34 | Emergency (ER) | payer MEDICARE, OTHER, SELFPAY ==
--- NOTE | ~2024-10-20 | XR_ITS ---
XR chest 2V Ordering provider: Evelia Ruggiero History: 69 years Female with . SOB COUGH . Comparison: None. FINDINGS: MEDIASTINUM: The cardiac silhouette is not enlarged. LUNGS: No infiltrates, effusions or pneumothorax. OTHER: No free air under the diaphragm. Kyphosis centered at the level of T11. Degenerative the spine. Postoperative changes in the lumbar sp ine with spinal stimulator is seen in the midthoracic area. IMPRESSION: No acute cardiopulmonary pathology. Reviewed, dictated and finalized at location [facility]. [facility]
[2024-10-20 11:36] VITALS: BP 158/95; PULSE 96; RESP 20; TEMP 36.8; O2SAT 100
--- NOTE | 2024-10-20 11:40 | ECG_ITS ---
Test Date: 2024-10-20 11:44:01 Measurements Intervals [place] Rate: 95 P: 7 NH: 173 QRS: 58 QRSD: 86 T: 8 QT: 364 QTc: 458 Interpretive Statements SINUS RHYTHM POSSIBLE LEFT ATRIAL ENLARGEMENT [-0.1mV P WAVE IN V1/V2] LOW QRS VOLTAGE IN PRECORDIAL LEADS [QRS DEFLECTION < 1.0 mV IN CHEST LEADS] BASELINE ARTIFACT LIMITS INTERPRETATION Compared to ECG 08/04/2024 17:54:31 NO SIGNIFICANT CHANGES Electronically Signed On 10-20-2024 15:01:10 RECREATION FACILITIES SUPERVISOR by Sean Joseph M.D.
--- NOTE | 2024-10-20 12:51 | ED.URI ---
HPI - URI/Sore Throat General Chief Complaint: Upper Respiratory Infection <vEelia Ruggiero PA-C - Last Filed: 10/21/24 10:41> Stated Complaint: sent to be admitted for pneumonia <Evelia Ruggiero PA-C - Last Filed: 10/21/24 10:41> Time Seen by Provider: 10/20/24 12:51 <Evelia Ruggiero PA-C - Last Filed: 10/21/24 10:41> Focused HPI: This is a 69 year old female that presents to the ER for cold symptoms. Ongoing since the end of last month. She finished a Z pack prescribed by urgent care with little relief. Reports some fevers. Reports cough, congestion. Reports shortness of breath with coughing. Reports her shoulder blades hurt with coughing. Denies chest pain. She was sent by her PCP to be seen for pneumonia. No history of COPD or asthma. She was given a nebulizer treatment in her PCPs office without relief. She has no history of COPD or asthma. GENERAL: Well-appearing, well-nourished, and in no acute distress. HEAD: Normocephalic, atraumatic. CHEST: Clear to auscultation. ?No respiratory distress. HEART: Regular rate and rhythm.? NEURO: ?Alert and oriented x3. Patient screened in triage and initial orders placed.? ?Additional care and disposition to be based upon?diagnostic testing and treatment. <Evelia Ruggiero PA-C - Last Filed: 10/21/24 10:41> History of Present Illness HPI Narrative: see above, agree with assessment <Amy Escobedo MD - Last Filed: 10/20/24 18:29> Related Data Home Medications: Home Medications ?Medication ?Instructions ?Recorded ?Confirmed ?Last Taken ?Type acetaminophen 650 mg 650 mg PO Q12H 06/13/23 10/16/23 Unknown History tablet,extended release (Tylenol Arthritis Pain) apixaban 5 mg tablet 5 mg PO BID 06/13/23 10/16/23 Unknown History cholecalciferol (vitamin D3) 25 25 mcg PO DAILY 06/13/23 10/16/23 Unknown History mcg (1,000 unit) capsule cranberry 400 mg capsule 400 mg PO DAILY 06/13/23 10/16/23 Unknown History cyclobenzaprine 10 mg tablet 10 mg PO TID 06/13/23 10/16/23 Unknown History digestive enzymes 1 cap PO DAILY 06/13/23 10/16/23 Unknown History docusate sodium 100 mg capsule 100 mg PO DAILY 06/13/23 10/16/23 Unknown History ferrous sulfate 325 mg (65 mg 325 mg PO DAILY 06/13/23 10/16/23 Unknown History iron) tablet gabapentin 100 mg capsule 100 mg PO DAILY 06/13/23 10/16/23 Unknown History hydrocodone 5 mg-acetaminophen 325 1 tablet PO QHS PRN 06/13/23 10/16/23 Unknown History mg tablet lisinopril 5 mg tablet 5 mg PO DAILY 06/13/23 10/16/23 Unknown History [id number]-[id number]-[id number] tablet PO 06/13/23 10/16/23 Unknown History fumarate 18 mg-folic acid 400 mcg tablet (One-A-Day Women's Complete) naloxone 0.4 mg/mL injection 0.4 mg IM Q2M PRN 06/13/23 10/16/23 Unknown History syringe naproxen sodium 220 mg tablet 220 mg PO BID PRN 06/13/23 10/16/23 Unknown History (Flanax (naproxen)) rosuvastatin 10 mg tablet 10 mg PO DAILY 06/13/23 10/16/23 Unknown History ondansetron HCl 4 mg tablet 4 mg PO Q8H 10/16/23 10/16/23 Unknown History torsemide 20 mg tablet 20 mg PO QAM 10/16/23 10/16/23 Unknown History <Evelia Ruggiero PA-C - Last Filed: 10/21/24 10:41> Allergies/Adverse Reactions: Allergies Allergy/AdvReac Type Severity Reaction Status Date / Time tetracycline Allergy Unknown Swelling Verified 10/16/23 10:33 pancrelipase Allergy Other Verified 10/16/23 10:33 fentanyl AdvReac Confusion Verified 10/16/23 10:33 <Evelia Ruggiero PA-C - Last Filed: 10/21/24 10:41> Review of Systems Review of Systems: All systems reviewed & are unremarkable except as noted in HPI and below <Amy Escobedo MD - Last Filed: 10/20/24 18:29> [facility] Past Medical History Medical History: Medical History Adhesive capsulitis of right shoulder DVT (deep venous thrombosis) GERD (gastroesophageal reflux disease) History of sepsis Right rotator cuff tear <Evelia Ruggiero PA-C - Last Filed: 10/21/24 10:41> Surgical History Surgical History: Surgical History History of back surgery History of cholecystectomy History of hysterectomy History of surgery on lower extremity <Evelia Ruggiero PA-C - Last Filed: 10/21/24 10:41> Family History Family History: Family History Mother Lung cancer Father Alcoholism <Evelia Ruggiero PA-C - Last Filed: 10/21/24 10:41> Social History Social History: Social History Smoking status: Never smoker Alcohol intake: never Substance use: never Lack of Transportation: No Lack of Food: Never True Current Housing: I Have Housing Concerned About Future Housing: No Difficulty Paying Gas/Electric Bills: No Difficulty Paying for Meds: No Currently Unemployed: No Education: High School Diploma/GED Difficulty w/ Childcare or Family Care: No Living arrangements: with family Occupation/Education: retired <Evelia Ruggiero PA-C - Last Filed: 10/21/24 10:41> Exam Narrative: EXAMINATION OF ORGAN SYSTEMS/BODY AREAS: Constitutional: Vital signs per nursing GENERAL:[No acute distress, non-toxic appearing.] HEAD: Normal with no signs of head trauma. EYES: EOMI, conjunctiva normal ENT: Hearing grossly intact LUNGS: wheezing bilaterally HEART: [Regular rate and rhythm] ABD: [Soft], [nontender to palpation] EXT: Normal range of motion SKIN: [No rashes or lesions.] NEURO: [Alert and oriented x 3. No gross focal sensory or strength deficits.] PSYCH: Normal affect <Amy Escobedo MD - Last Filed: 10/20/24 18:29> Course Vital Signs Vital signs: Vital Signs Temperature 98.3 F 10/20/24 11:36 Pulse Rate 96 10/20/24 11:36 Respiratory Rate 20 10/20/24 11:36 Blood Pressure 158/95 H 10/20/24 11:36 Pulse Oximetry 100 10/20/24 11:36 Oxygen Delivery Room Air 10/20/24 11:36 Temperature 98.2 F 10/20/24 15:04 Pulse Rate 88 10/20/24 15:14 Respiratory Rate 16 10/20/24 15:14 Blood Pressure 144/86 H 10/20/24 15:14 Pulse Oximetry 96 10/20/24 15:14 Oxygen Delivery Room Air 10/20/24 15:04 <Evelia Ruggiero PA-C - Last Filed: 10/21/24 10:41> Vital Signs Temperature 98.3 F 10/20/24 11:36 Pulse Rate 96 10/20/24 11:36 Respiratory Rate 20 10/20/24 11:36 Blood Pressure 158/95 H 10/20/24 11:36 Pulse Oximetry 100 10/20/24 11:36 Oxygen Delivery Room Air 10/20/24 11:36 Temperature 98.2 F 10/20/24 15:04 Pulse Rate 88 10/20/24 15:14 Respiratory Rate 16 10/20/24 15:14 Blood Pressure 144/86 H 10/20/24 15:14 Pulse Oximetry 96 10/20/24 15:14 Oxygen Delivery Room Air 10/20/24 15:04 <Amy Escobedo MD - Last Filed: 10/20/24 18:29> MDM - URI/Sore Throat MDM Narrative Medical decision making narrative: patient presents here with URI symptoms, has finished course of antibiotics recently, on exam she does have wheezing bilaterally as well as slight cough, a 6 most likely acute bronchitis, will trial a course of steroids and albuterol, and have her follow-up with her primary care doctor. I have let her know she can return to the ER immediately for any further issues. No DVT symptoms or anything else that may make me concerned for PE, she has no chest pain or anything else that makes me concerned for ACS. <Amy Escobedo MD - Last Filed: 10/20/24 18:29> Lab Data Result diagrams: 10/20/24 14:00 10/20/24 14:00 <Evelia Ruggiero PA-C - Last Filed: 10/21/24 10:41> Labs: Lab Results 10/20/24 Range/Units 14:00 WBC 3.4 L (4.5-10.0) K/mm3 RBC 3.43 L (4.2-5.4) M/mm3 Hgb 11.1 L (12.0-15.0) g/dL Hct 34.7 L (37.0-47.0) % MCV 101.2 H (80-100) fl MCH 32.4 (26-34) pg MCHC 32.0 (32-36) g/dl RDW 12.3 (11.5-14.5) % Plt Count 269 (150-375) k/mm3 MPV 8.4 (7.4-10.4) fl Immature Gran % (Auto) 0.6 H (0-0.5) % Neut % (Auto) 41.1 L (45.5-73.1) % Lymph % (Auto) 44.3 H (18.3-44.2) % Giles % (Auto) 13.1 H (2.6-8.5) % Eos % (Auto) 0.6 (0-4.4) % Baso % (Auto) 0.3 (0.2-1.2) % Lymph # (Auto) 1.49 (0.9-3.2) K/mm3 Giles # (Auto) 0.4 (0.1-0.6) K/mm3 Eos # (Auto) 0.0 (0-0.3) K/mm3 Baso # (Auto) 0.0 (0.0-0.1) K/mm3 Abs Immat Gran (auto) 0.02 (0.00-0.031) K/mm3 Absolute Neuts (auto) 1.4 (1.3-6.7) K/mm3 Absolute Nucleated RBC 0.000 (0.0-0.012) K/mm3 Nucleated RBC % 0.0 (0.0-0.2) % PT 15.0 H (11.1-14.7) Seconds INR 1.1 APTT 29.7 (22.3-36.8) Seconds Sodium 137 (137-145) mmol/L Potassium 3.2 L (3.4-5.0) mmol/L Chloride 103 (98-107) mmol/L Carbon Dioxide 28 (22-30) mmol/L Anion Gap 6 (4-12) mmol/L BUN 20 H (7-17) mg/dL Creatinine 0.90 (0.7-1.0) mg/dL Estim Creat Clear Calc Not Reportable Estimated GFR > 60 (59 - ) Glucose 96 (65-110) mg/dL Calcium 9.0 (8.4-10.2) mg/dL Magnesium 1.6 (1.6-2.3) mg/dL Total Bilirubin 0.4 (0.2-1.3) mg/dL AST 38 H (14-36) U/L ALT 18 (6-35) U/L Alkaline Phosphatase 84 (38-126) U/L Total Protein 9.0 H (6.3-8.2) g/dL Albumin 4.0 (3.5-5.1) g/dL <Evelia Ruggiero PA-C - Last Filed: 10/21/24 10:41> Lab Results 10/20/24 Range/Units 14:00 WBC 3.4 L (4.5-10.0) K/mm3 RBC 3.43 L (4.2-5.4) M/mm3 Hgb 11.1 L (12.0-15.0) g/dL Hct 34.7 L (37.0-47.0) % MCV 101.2 H (80-100) fl MCH 32.4 (26-34) pg MCHC 32.0 (32-36) g/dl RDW 12.3 (11.5-14.5) % Plt Count 269 (150-375) k/mm3 MPV 8.4 (7.4-10.4) fl Immature Gran % (Auto) 0.6 H (0-0.5) % Neut % (Auto) 41.1 L (45.5-73.1) % Lymph % (Auto) 44.3 H (18.3-44.2) % Giles % (Auto) 13.1 H (2.6-8.5) % Eos % (Auto) 0.6 (0-4.4) % Baso % (Auto) 0.3 (0.2-1.2) % Lymph # (Auto) 1.49 (0.9-3.2) K/mm3 Giles # (Auto) 0.4 (0.1-0.6) K/mm3 Eos # (Auto) 0.0 (0-0.3) K/mm3 Baso # (Auto) 0.0 (0.0-0.1) K/mm3 Abs Immat Gran (auto) 0.02 (0.00-0.031) K/mm3 Absolute Neuts (auto) 1.4 (1.3-6.7) K/mm3 Absolute Nucleated RBC 0.000 (0.0-0.012) K/mm3 Nucleated RBC % 0.0 (0.0-0.2) % PT 15.0 H (11.1-14.7) Seconds INR 1.1 APTT 29.7 (22.3-36.8) Seconds Sodium 137 (137-145) mmol/L Potassium 3.2 L (3.4-5.0) mmol/L Chloride 103 (98-107) mmol/L Carbon Dioxide 28 (22-30) mmol/L Anion Gap 6 (4-12) mmol/L BUN 20 H (7-17) mg/dL Creatinine 0.90 (0.7-1.0) mg/dL Estim Creat Clear Calc Not Reportable Estimated GFR > 60 (59 - ) Glucose 96 (65-110) mg/dL Calcium 9.0 (8.4-10.2) mg/dL Magnesium 1.6 (1.6-2.3) mg/dL Total Bilirubin 0.4 (0.2-1.3) mg/dL AST 38 H (14-36) U/L ALT 18 (6-35) U/L Alkaline Phosphatase 84 (38-126) U/L Total Protein 9.0 H (6.3-8.2) g/dL Albumin 4.0 (3.5-5.1) g/dL <Amy Escobedo MD - Last Filed: 10/20/24 18:29> Imaging Data Radiologist's impression: ITS Impressions Chest X-Ray 10/20/24 13:46 IMPRESSION: No acute cardiopulmonary pathology. <Evelia Ruggiero PA-C - Last Filed: 10/21/24 10:41> Critical Care Time Critical Care Time Critical Care Time: No <Evelia Ruggiero PA-C - Last Filed: 10/21/24 10:41> Discharge Plan Discharge Clinical Impression: Bronchitis <MIHIR Francis Last Filed: 10/21/24 10:41> Patient Disposition: Home, Self-Care <MIHIR Francis Last Filed: 10/21/24 10:41> Condition: Stable <Evelia Ruggiero PA-C - Last Filed: 10/21/24 10:41> Instructions: Acute Bronchitis (ED) <MIHIR Francis Last Filed: 10/21/24 10:41> Additional Instructions: Please follow up with your doctor; you can always return for any further issues. <Evelia Ruggiero PA-C - Last Filed: 10/21/24 10:41> Patient Language: Romansh <MIHIR Francis Last Filed: 10/21/24 10:41> Prescriptions: New prednisone 20 mg tablet 40 mg PO DAILY 4 Days Qty: 8 0RF albuterol sulfate 90 mcg/actuation HFA aerosol inhaler 2 puff inhalation QID PRN (Reason: shortness of breath or wheezing) Qty: 8.5 0RF No Action ondansetron HCl 4 mg tablet 4 mg PO Q8H torsemide 20 mg tablet 20 mg PO QAM apixaban 5 mg tablet 5 mg PO BID cranberry 400 mg capsule 400 mg PO DAILY Rx Instructions: administer with a meal cyclobenzaprine 10 mg tablet 10 mg PO TID digestive enzymes Capsule 1 cap PO DAILY Rx Instructions: administer with food; swallow whole; do not crush/chew/dissolve/break/cut docusate sodium 100 mg capsule 100 mg PO DAILY ferrous sulfate 325 mg (65 mg iron) tablet 325 mg PO DAILY gabapentin 100 mg capsule 100 mg PO DAILY hydrocodone-acetaminophen 5-325 mg tablet 1 tablet PO QHS PRN lisinopril 5 mg tablet 5 mg PO DAILY naloxone 0.4 mg/mL syringe 0.4 mg IM Q2M PRN Rx Instructions: NTExceed 10 mg total dose/episode naproxen sodium [Flanax (naproxen)] 220 mg tablet 220 mg PO BID PRN One-A-Day Women's Complete 18 mg iron- 400 mcg tablet PO rosuvastatin 10 mg tablet 10 mg PO DAILY acetaminophen [Tylenol Arthritis Pain] 650 mg tablet extended release 650 mg PO Q12H cholecalciferol (vitamin D3) 25 mcg (1,000 unit) capsule 25 mcg PO DAILY tramadol 50 mg tablet 50 mg PO Q6H PRN (Reason: pain) Qty: 15 0RF lidocaine 5 % adhesive patch,medicated 1 patch topical DAILY PRN (Reason: pain) Qty: 15 0RF Rx Instructions: leave on most painful area for up to 12 hrs <Evelia Ruggiero PA-C - Last Filed: 10/21/24 10:41> Follow-up/Referrals: Misty,[facility] De La Cruz [Primary Care Provider] - 3 Days <Evelia Ruggiero PA-C - Last Filed: 10/21/24 10:41>
[2024-10-20 14:12] LABS: Basophils Percent Auto 0.3 % (0.2-1.2); Eosinophils Percent Auto 0.6 % (0-4.4); Hematocrit 34.7 % (37.0-47.0); Hemoglobin 11.1 g/dL (12.0-15.0); Immature Granulocyte Absolute 0.02 K/mm3 (0.00-0.031); Immature Granulocyte Percent A 0.6 % (0-0.5); Lymphocytes Absolute Auto 1.49 K/mm3 (0.9-3.2); Lymphocytes Percent Auto 44.3 % (18.3-44.2); Mean Corpuscular Hemoglobin 32.4 pg (26-34); Mean Corpuscular Volume 101.2 fl (80-100); Mean Platelet Volume 8.4 fl (7.4-10.4); Monocytes Absolute Auto 0.4 K/mm3 (0.1-0.6); Monocytes Percent Auto 13.1 % (2.6-8.5); Neutrophils Absolute Auto 1.4 K/mm3 (1.3-6.7); Neutrophils Percent Auto 41.1 % (45.5-73.1); Platelet Count Result 269 k/mm3 (150-375); Red Blood Count 3.43 M/mm3 (4.2-5.4); Red Cell Distribution Width 12.3 % (11.5-14.5); White Blood Count 3.4 K/mm3 (4.5-10.0)
[2024-10-20 14:19] LABS: Alanine Aminotransferase 18 U/L (6-35); Alkaline Phosphatase 84 U/L (38-126); Anion Gap 6 mmol/L (4-12); Aspartate Amino Transferase 38 U/L (14-36); Bilirubin,Total 0.4 mg/dL (0.2-1.3); Blood Urea Nitrogen 20 mg/dL (7-17); Carbon Dioxide 28 mmol/L (22-30); Chloride 103 mmol/L (98-107); Estimated Glomerular Filt Rate > 60; Glucose 96 mg/dL (65-110); Potassium 3.2 mmol/L (3.4-5.0); Sodium 137 mmol/L (137-145)
[2024-10-20 14:36] LABS: INR 1.1
[2024-10-20 14:37] LABS: Partial Thromboplastin Time 29.7 Seconds (22.3-36.8)
[2024-10-20 15:04] VITALS: BP 108/82; PULSE 90; RESP 18; TEMP 36.8; O2SAT 100
[2024-10-20 15:14] VITALS: BP 144/86; PULSE 88; RESP 16; O2SAT 96
[2024-10-20 15:14] LABS: Magnesium 1.6 mg/dL (1.6-2.3)
[2024-10-20] MEDS: POTASSIUM CHLORIDE 20 MEQ ER TABLET 40 MEQ PO (15:15)
[2024-10-20] MEDS: ALBUTEROL SULFATE (*SP) INHALER 4 PUFF INHALATION (15:15)
[2024-10-20] MEDS: predniSONE 20 MG TABLET 40 MG PO (15:15)
== END 2024-10-20 15:16 | disposition home or self-care (01) ==
PROVIDERS: Physician Assistant; Emergency Provider Emergency Medicine; PCP Nurse Practitioner
DX: J40 Bronchitis, not specified as acute or chronic (principal); Z86.718 Personal history of other venous thrombosis and embolism; K21.9 Gastro-esophageal reflux disease without esophagitis
CPT/HCPCS: 36415; 71046; 80053; 83735; 85025; 85610; 85730; 93005; 99283; A9270; J7512

== ENCOUNTER 2024-10-24 00:35 | Emergency (ER) | payer MEDICARE, OTHER, SELFPAY ==
--- NOTE | ~2024-10-24 | CT_ITS ---
EXAMINATION: CT abdomen pelvis w con DATE: 10/24/2024 03:38 INDICATION: Diffuse abdominal pain TECHNIQUE: Computed tomography (CT) of the abdomen and pelvis was performed with 100 mL Omnipaque-350 intravenous contrast. Automated exposure control and iterative reconstruction technique were employe d. The dose-length product was 609.71 mGy-cm. COMPARISON: CT pelvis dated 08/04/2024 FINDINGS: Dependent groundglass and linear opacities in the bilateral lower lobes and favor atelectasis over pn eumonia or pulmonary edema. Heart size is normal. Atherosclerotic coronary artery calcifications. Aor tic valve calcific location. No pericardial effusion. Cholecystectomy clips the gallbladder fossa. Li rao and spleen, pancreas, bilateral adrenal glands and kidneys are normal. Dystrophic calcifications along a prior ventral hernia mesh repair in the pelvis and lower abdomen. There is fluid throughout t he nondilated small bowel and colon consistent with nonspecific diarrhea. No frankly dilated bowel or transition point to suggest obstruction. Normal appendix. Bladder is normal. The uterus is not ident ified and has likely been surgically resected. Minimal ascites in the deep pelvis. Thoracolumbar kyph osis with severe spondylosis. L5-S1 anterior spinal fusion and fusion across the bilateral L4-5 and L 5-S1 facet joints. Bone graft harvest site at the right posterior iliac spine. Mild to moderate bilat eral hip osteoarthritis. Disconnected retained spinal stimulator lead in the posterior central canal of the lower thoracic spine. IMPRESSION: 1. Nonspecific diarrhea with fluid filled loops of large and small bowel without evident obstruction. Correlate clinically for gastroenteritis. 2. Minimal amount of nonspecific, likely reactive ascites. 3. Postoperative change of ventral hernia mesh repair. 4. Dependent opacities in the bilateral lower lobes with appearance favoring atelectasis over pneumon ia or pulmonary edema. Reviewed, dictated and finalized at location [facility] IMPRESSION: 1. Nonspecific diarrhea with fluid filled loops of large and small bowel withou t evident obstruction. Correlate clinically for gastroenteritis. 2. Minimal amount of nonspecific, likely reactive ascites. 3. Postoperative change of ventral hernia mesh repair. 4. Dependent opacities in the bilateral lower lobes with appearance favoring at electasis over pneumonia or pulmonary edema.
[2024-10-24 00:34] VITALS: BP 148/85; PULSE 92; RESP 22; TEMP 36.8; O2SAT 100
--- NOTE | 2024-10-24 01:05 | PC.NURSE ---
unable to get line will reattempt.
--- NOTE | 2024-10-24 01:23 | PC.NURSE ---
RN informed insulation cupola charger that IV access was not successful. Charge informed to ask provider to obtain access.
--- NOTE | 2024-10-24 01:24 | PC.NURSE ---
Provider in with patient at this time getting IV ultrasound access.
[2024-10-24] MEDS: diphenhydrAMINE HCl INJ 50 MG/ML VIAL 25 MG IV PUSH (01:33)
[2024-10-24] MEDS: SODIUM CHLORIDE 0.9% IV 1,000 ML 999 ML IV CONT (01:33)
[2024-10-24] MEDS: METOCLOPRAMIDE HCL INJ 10 MG/2 ML VIAL IV PUSH (01:34)
[2024-10-24] MEDS: MORPHINE SULFATE (*CRX) 4 MG/ML INJ IV PUSH (01:35)
[2024-10-24 01:45] LABS: Hematocrit 32.4 % (37.0-47.0); Hemoglobin 10.4 g/dL (12.0-15.0); Immature Granulocyte Absolute 0.01 K/mm3 (0.00-0.031); Immature Granulocyte Percent A 0.2 % (0-0.5); Lymphocytes Percent Auto 37.2 % (18.3-44.2); Mean Corpuscular HGB Conc 32.1 g/dl (32-36); Mean Corpuscular Hemoglobin 32.2 pg (26-34); Mean Corpuscular Volume 100.3 fl (80-100); Mean Platelet Volume 8.5 fl (7.4-10.4); Monocytes Absolute Auto 0.4 K/mm3 (0.1-0.6); Monocytes Percent Auto 8.9 % (2.6-8.5); Neutrophils Absolute Auto 2.6 K/mm3 (1.3-6.7); Neutrophils Percent Auto 53.7 % (45.5-73.1); Platelet Count Result 305 k/mm3 (150-375); Red Blood Count 3.23 M/mm3 (4.2-5.4); Red Cell Distribution Width 12.8 % (11.5-14.5); White Blood Count 4.8 K/mm3 (4.5-10.0)
[2024-10-24 01:55] LABS: Alanine Aminotransferase 18 U/L (6-35); Albumin Level 3.5 g/dL (3.5-5.1); Alkaline Phosphatase 74 U/L (38-126); Anion Gap 3 mmol/L (4-12); Aspartate Amino Transferase 37 U/L (14-36); Bilirubin,Total 0.4 mg/dL (0.2-1.3); Blood Urea Nitrogen 24 mg/dL (7-17); Calcium 9.3 mg/dL (8.4-10.2); Carbon Dioxide 30 mmol/L (22-30); Chloride 102 mmol/L (98-107); Estimated CRCL calculation 56 ml/min; Estimated Glomerular Filt Rate > 60; Glucose 90 mg/dL (65-110); Lipase 55 U/L (23-300); Potassium 3.5 mmol/L (3.4-5.0); Sodium 135 mmol/L (137-145)
[2024-10-24 02:19] LABS: Influenza A QL RT-PCR Negative (Negative); Influenza B QL RT-PCR Negative (Negative); RSV RNA, RT-PCR Negative (Negative); SARS-CoV-2 RNA PCR Negative (Negative)
--- NOTE | 2024-10-24 03:24 | ED.NAVMDI ---
HPI - Nausea/Vomiting/Diarrhea General Chief complaint: Nausea/Vomiting/Diarrhea Stated complaint: N/V, ABD PAIN Time Seen by Provider: 10/24/24 00:57 History of Present Illness HPI Narrative: 69-year-old female with a past medical history of several abdominal surgeries for hernia repair. Presents to the emergency room today with chief complaint of nauseousness, vomiting, vague abdominal complaints. She states she has vomited several times today. Symptoms have been going on for several days. Denies any chest pain, difficulty breathing, fever, chills, dysuria. One episode diarrhea but no melena or bloody bowel movements. No constipation. Tolerating p.o. intake but does have some nauseousness presently. Related Data Home Medications ?Medication ?Instructions ?Recorded ?Confirmed ?Last Taken ?Type acetaminophen 650 mg 650 mg PO Q12H 06/13/23 10/16/23 Unknown History tablet,extended release (Tylenol Arthritis Pain) apixaban 5 mg tablet 5 mg PO BID 06/13/23 10/16/23 Unknown History cholecalciferol (vitamin D3) 25 25 mcg PO DAILY 06/13/23 10/16/23 Unknown History mcg (1,000 unit) capsule cranberry 400 mg capsule 400 mg PO DAILY 06/13/23 10/16/23 Unknown History cyclobenzaprine 10 mg tablet 10 mg PO TID 06/13/23 10/16/23 Unknown History digestive enzymes 1 cap PO DAILY 06/13/23 10/16/23 Unknown History docusate sodium 100 mg capsule 100 mg PO DAILY 06/13/23 10/16/23 Unknown History ferrous sulfate 325 mg (65 mg 325 mg PO DAILY 06/13/23 10/16/23 Unknown History iron) tablet gabapentin 100 mg capsule 100 mg PO DAILY 06/13/23 10/16/23 Unknown History hydrocodone 5 mg-acetaminophen 325 1 tablet PO QHS PRN 06/13/23 10/16/23 Unknown History mg tablet lisinopril 5 mg tablet 5 mg PO DAILY 06/13/23 10/16/23 Unknown History qdmroowrkjtg-wyrojeyi-fytt tablet PO 06/13/23 10/16/23 Unknown History fumarate 18 mg-folic acid 400 mcg tablet (One-A-Day Women's Complete) naloxone 0.4 mg/mL injection 0.4 mg IM Q2M PRN 06/13/23 10/16/23 Unknown History syringe naproxen sodium 220 mg tablet 220 mg PO BID PRN 06/13/23 10/16/23 Unknown History (Flanax (naproxen)) rosuvastatin 10 mg tablet 10 mg PO DAILY 06/13/23 10/16/23 Unknown History ondansetron HCl 4 mg tablet 4 mg PO Q8H 10/16/23 10/16/23 Unknown History torsemide 20 mg tablet 20 mg PO QAM 10/16/23 10/16/23 Unknown History Allergies Allergy/AdvReac Type Severity Reaction Status Date / Time tetracycline Allergy Unknown Swelling Verified 10/16/23 10:33 pancrelipase Allergy Other Verified 10/16/23 10:33 fentanyl AdvReac Confusion Verified 10/16/23 10:33 Review of Systems Review of Systems: As reviewed above in [facility] Past Medical History Medical History History of sepsis Adhesive capsulitis of right shoulder Right rotator cuff tear GERD (gastroesophageal reflux disease) DVT (deep venous thrombosis) Surgical History Surgical History History of surgery on lower extremity History of back surgery History of hysterectomy History of cholecystectomy Family History Family History Mother Lung cancer Father Alcoholism Social History Social History Smoking status: Never smoker Alcohol intake: never Substance use: never Lack of Transportation: No Lack of Food: Never True Current Housing: I Have Housing Concerned About Future Housing: No Difficulty Paying Gas/Electric Bills: No Difficulty Paying for Meds: No Currently Unemployed: No Education: High School Diploma/GED Difficulty w/ Childcare or Family Care: No Living arrangements: with family Occupation/Education: retired Exam Narrative: GENERAL: [Well-appearing, well-nourished, and in no acute distress.] HEAD: [Normocephalic, atraumatic.] EYES: [PERRLA and EOMI.] ENT: Nares clear, no rhinorrhea or epistaxis. Mucous membranes moist. NECK: Supple. CHEST: [Clear to auscultation. No respiratory distress.] HEART: [Regular rate and rhythm]. No murmur heard. [Normal peripheral pulses.] ABDOMEN: [Soft, nondistended], tenderness to palpation diffusely but moderate without any signs of peritonitis, previous ex lap scar evident, [No rigidity or guarding] EXTREMITIES: Normal range of motion. [No edema.] SKIN: Warm, dry, no rash. NEURO: [No focal deficits]. Alert and oriented [x3.] PSYCH: [Normal mood and affect.] Course Vital Signs Vital signs: Vital Signs Temperature 36.8 C 10/24/24 00:34 Pulse Rate 92 10/24/24 00:34 Respiratory Rate 22 H 10/24/24 00:34 Blood Pressure 148/85 H 10/24/24 00:34 Pulse Oximetry 100 10/24/24 00:34 Oxygen Delivery Room Air 10/24/24 00:34 Temperature 36.8 C 10/24/24 00:34 Pulse Rate 92 10/24/24 00:34 Respiratory Rate 22 H 10/24/24 00:34 Blood Pressure 148/85 H 10/24/24 00:34 Pulse Oximetry 100 10/24/24 00:34 Oxygen Delivery Room Air 10/24/24 00:34 Procedures EJ/Peripheral Line Arm R: EJ/Peripheral Line Date: 10/24/24 EJ/Peripheral Line Time: 02:40 Time Out Performed: Yes Skin Cleansed in Sterile Fashion: Yes Ultrasound Guided: Yes Size (gauge): 20 IV Secured and Dressing Applied: Yes Patient Tolerated Procedure: well and no complications MDM - Nausea/Vomiting/Diarrhea MDM Narrative Medical decision making narrative: 69-year-old female presenting to the emergency room with complaints of vague abdominal pain, nauseous and vomiting for several days. She has a history of multiple abdominal surgeries including hernia repair. She has a history of a DVT that she takes Eliquis for. No recent injuries or illnesses. Endorses several episodes of vomiting today and 1 episode of diarrhea. Sick contacts at home. Her abdomen is soft, nondistended but there is some tenderness to palpation diffusely without any focality. No signs of peritonitis. Vital signs reassuring without any significant blood pressure elevations, no tachycardia, fever, hypoxia. Ultrasound-guided IV was established by myself for access and blood draws. She was provide symptomatic control with Reglan, Benadryl and morphine. Given her medical history and abdominal complaints differential includes gastroenteritis, gastritis, appendicitis, pancreatitis, diverticulitis, low suspicion for any other intra-abdominal process at this time however his CT scan with IV contrast was ordered for further delineation. Laboratory assessment a CBC, CMP, magnesium, lipase., urinalysis. COVID fluid RSV swabs also obtained given her sick contacts. Of note patient was recently seen here in prescribed a Z-Jonathan and prednisone for bronchitis which she states she took the 1st day of and made her sick. Workup shows no leukocytosis. Hemoglobin 10.4 which is in line with the chronic anemia. Normal platelets. Electrolytes all within normal limits, normal renal and hepatic function panel. Negative lipase. Patient CT abdomen pelvis with contrast was read by radiology. I did independently reviewed the film and do not appear to have any acute findings or suspicious transition point or any signs of obstruction. Radiology by stat read shows fluid-filled small bowel and colon without any transition points likely flu quell of enterocolitis. Tethering of bowel loops to the abdominal wall secondary to adhesions, ventral hernia mesh noted, normal appearing appendix, cholecystectomy, hysterectomy, no acute abdominal findings otherwise. Patient was re-evaluated frequently had improvement in pain while here in the emergency department. Given her unremarkable workup and no acute findings on her CT scan I believe she can be safe for discharge home at this time with some medications for symptom control on outpatient basis. Encouraged to follow-up with her PCP and return if she has any new or worsening symptoms at any time. Medical Records Attestation: I reviewed the patient's medical records. Lab Data Attestation: I reviewed the patient's lab results. 10/24/24 01:38 10/24/24 01:38 Labs: Lab Results 10/24/24 Range/Units 01:38 WBC 4.8 (4.5-10.0) K/mm3 RBC 3.23 L (4.2-5.4) M/mm3 Hgb 10.4 L (12.0-15.0) g/dL Hct 32.4 L (37.0-47.0) % MCV 100.3 H (80-100) fl MCH 32.2 (26-34) pg MCHC 32.1 (32-36) g/dl RDW 12.8 (11.5-14.5) % Plt Count 305 (150-375) k/mm3 MPV 8.5 (7.4-10.4) fl Immature Gran % (Auto) 0.2 (0-0.5) % Neut % (Auto) 53.7 (45.5-73.1) % Lymph % (Auto) 37.2 (18.3-44.2) % Atlantic % (Auto) 8.9 H (2.6-8.5) % Eos % (Auto) 0.0 (0-4.4) % Baso % (Auto) 0.0 L (0.2-1.2) % Lymph # (Auto) 1.80 (0.9-3.2) K/mm3 Atlantic # (Auto) 0.4 (0.1-0.6) K/mm3 Eos # (Auto) 0.0 (0-0.3) K/mm3 Baso # (Auto) 0.0 (0.0-0.1) K/mm3 Abs Immat Gran (auto) 0.01 (0.00-0.031) K/mm3 Absolute Neuts (auto) 2.6 (1.3-6.7) K/mm3 Absolute Nucleated RBC 0.000 (0.0-0.012) K/mm3 Nucleated RBC % 0.0 (0.0-0.2) % Sodium 135 L (137-145) mmol/L Potassium 3.5 (3.4-5.0) mmol/L Chloride 102 (98-107) mmol/L Carbon Dioxide 30 (22-30) mmol/L Anion Gap 3 L (4-12) mmol/L BUN 24 H (7-17) mg/dL Creatinine 0.80 (0.7-1.0) mg/dL Estim Creat Clear Calc 56 ml/min Estimated GFR > 60 (59 - ) Glucose 90 (65-110) mg/dL Calcium 9.3 (8.4-10.2) mg/dL Total Bilirubin 0.4 (0.2-1.3) mg/dL AST 37 H (14-36) U/L ALT 18 (6-35) U/L Alkaline Phosphatase 74 (38-126) U/L Total Protein 8.0 (6.3-8.2) g/dL Albumin 3.5 (3.5-5.1) g/dL Lipase 55 (23-300) U/L Influenza A (RT-PCR) Negative (Negative) Influenza B (RT-PCR) Negative (Negative) RSV (RT-PCR) Negative (Negative) SARS-CoV-2 RNA (RT-PCR) Negative (Negative) Imaging Data Attestation: I personally reviewed and interpreted this imaging study as follows: Discharge Plan Discharge Clinical Impression: Enterocolitis, Abdominal pain, Nausea & vomiting Patient Disposition: Home, Self-Care Condition: Stable Instructions: Antibiotic Form, Gastroenteritis (ED), Acute Nausea and Vomiting (ED), Acute Diarrhea (ED), Abdominal Pain (ED) Additional Instructions: Your CT scan shows some inflammation and a recent enterocolitis but no bowel obstruction or any other concerning findings and her laboratory studies are all within normal limits for you. We will send you home with some medications for cramping abdominal pain and nausea and we encouraged to follow-up with your PCP outpatient or return with any new or worsening concerns at any time. Patient Language: Cook Islander Prescriptions: New dicyclomine 20 mg tablet 20 mg PO TID PRN (Reason: abdominal pain) Qty: 20 0RF ondansetron 4 mg tablet,disintegrating 4 mg PO Q8H PRN (Reason: nausea and vomiting) Qty: 10 0RF No Action ondansetron HCl 4 mg tablet 4 mg PO Q8H torsemide 20 mg tablet 20 mg PO QAM apixaban 5 mg tablet 5 mg PO BID cranberry 400 mg capsule 400 mg PO DAILY Rx Instructions: administer with a meal cyclobenzaprine 10 mg tablet 10 mg PO TID digestive enzymes Capsule 1 cap PO DAILY Rx Instructions: administer with food; swallow whole; do not crush/chew/dissolve/break/cut docusate sodium 100 mg capsule 100 mg PO DAILY ferrous sulfate 325 mg (65 mg iron) tablet 325 mg PO DAILY gabapentin 100 mg capsule 100 mg PO DAILY hydrocodone-acetaminophen 5-325 mg tablet 1 tablet PO QHS PRN lisinopril 5 mg tablet 5 mg PO DAILY naloxone 0.4 mg/mL syringe 0.4 mg IM Q2M PRN Rx Instructions: NTExceed 10 mg total dose/episode naproxen sodium [Flanax (naproxen)] 220 mg tablet 220 mg PO BID PRN One-A-Day Women's Complete 18 mg iron- 400 mcg tablet PO rosuvastatin 10 mg tablet 10 mg PO DAILY acetaminophen [Tylenol Arthritis Pain] 650 mg tablet extended release 650 mg PO Q12H cholecalciferol (vitamin D3) 25 mcg (1,000 unit) capsule 25 mcg PO DAILY tramadol 50 mg tablet 50 mg PO Q6H PRN (Reason: pain) Qty: 15 0RF lidocaine 5 % adhesive patch,medicated 1 patch topical DAILY PRN (Reason: pain) Qty: 15 0RF Rx Instructions: leave on most painful area for up to 12 hrs prednisone 20 mg tablet 40 mg PO DAILY 4 Days Qty: 8 0RF albuterol sulfate 90 mcg/actuation HFA aerosol inhaler 2 puff inhalation QID PRN (Reason: shortness of breath or wheezing) Qty: 8.5 0RF Follow-up/Referrals: Misty,LO De La Cruz [Primary Care Provider] -
[2024-10-24 06:02] VITALS: BP 142/74; PULSE 82; RESP 18; O2SAT 99
[2024-10-24 06:30] VITALS: BP 128/73
--- NOTE | 2024-10-24 06:35 | PC.NURSE ---
pt is calling her family to pick her up.
== END 2024-10-24 07:01 | disposition home or self-care (01) ==
PROVIDERS: Emergency Provider Student in an Organized Health Care Education/Training Program; PCP Nurse Practitioner
DX: K52.9 Noninfective gastroenteritis and colitis, unspecified (principal); K21.9 Gastro-esophageal reflux disease without esophagitis; Z86.718 Personal history of other venous thrombosis and embolism; Z20.822 Contact with and (suspected) exposure to COVID-19
CPT/HCPCS: 36415; 74177; 80053; 83690; 85025; 87637; 96361; 96374; 96375; 99284; J1200; J2270; J2765; J7030; Q9967

== ENCOUNTER 2025-03-19 17:05 | Emergency (ER) | payer MEDICARE, OTHER, SELFPAY ==
--- NOTE | ~2025-03-19 | US_ITS ---
RIGHT LOWER EXTREMITY VENOUS ULTRASOUND Ordering provider: Denita Atkins APRN History: . swollen, painful RLE . Comparison: None. FINDINGS: --COMMON FEMORAL: Patent and free of thrombus. Normal compressibility, phasic flow and augmentation. --PROXIMAL SUPERFICIAL FEMORAL: Patent and free of thrombus. Normal compressibility, phasic flow and augmentation. --DISTAL SUPERFICIAL FEMORAL: Patent and free of thrombus. Normal compressibility, phasic flow and au gmentation. --POPLITEAL: Patent and free of thrombus. Normal compressibility, phasic flow and augmentation. --POSTERIOR TIBIAL: Patent and free of thrombus. Normal compressibility, phasic flow and augmentation . IMPRESSION: Negative right lower extremity venous US. No deep vein thrombosis. Reviewed, dictated and finalized at location A.
--- NOTE | ~2025-03-19 | CT_ITS ---
Procedure: CT knee RT wo con Ordering provider: Jimmy Wallace MD History: . TIBIAL PLATEAU FRACTURE . Comparison: None. Technique: Thin slice axial CT of the No IV contrast was given. Sagittal and coronal reformatted imag es were also obtained and reviewed. Findings: BONES: No definite fractures seen. Osteophyte is seen in the lateral tibial plateau with adjacent mickie encies JOINT SPACES: Severe narrowing of the medial compartment suggestive of severe osteoarthritic changes. Marginal osteophytes seen in the knee and patella. Chondrocalcinosis is noted. SOFT TISSUES: Normal. IMPRESSION: No definite fractures seen. Severe osteoarthritic changes. Chondrocalcinosis. Reviewed, dictated and finalized at location A.
--- NOTE | ~2025-03-19 | XR_ITS ---
XR knee RT 3V Ordering provider: Jimmy Wallace MD History: . Sudden right knee pain . Comparison: None. FINDINGS: BONES: Possibility of fracture of the edge of the lateral tibial plateau is not excluded. Follow-up a dvised.evaluation for tenderness in the area is also advised. JOINT SPACES: Narrowing of the medial compartment with marginal osteophytes. SOFT TISSUES: Vascular calcifications. Calcifications in the mid calf soft tissues posteriorly. This may represent artifact hemangioma canno t be excluded. Further evaluation advised. IMPRESSION: possible fracture in the border of the lateral tibial plateau. Follow-up advised. Severe osteoarthritic changes. Calcifications in the posterior aspect of the midcalf. Reviewed, dictated and finalized at location A. IMPRESSION: possible fracture in the border of the lateral tibial plateau. Follow-up advise d. Severe osteoarthritic changes. Calcifications in the posterior aspect of the midcalf.
--- NOTE | 2025-03-19 17:08 | ED.LOWEXIN ---
HPI - Extremity Injury (Lower) General Chief Complaint: Extremity Injury, Lower <Jimmy Wallace MD - Last Filed: 03/19/25 18:22> Stated Complaint: knee pain <Jimmy Wallace MD - Last Filed: 03/19/25 18:22> Time Seen by Provider: 03/19/25 17:07 <Jimmy Wallace MD - Last Filed: 03/19/25 18:22> Source: patient and EMS <Jimmy Wallace MD - Last Filed: 03/19/25 18:22> Mode of arrival: EMS <Jimmy Wallace MD - Last Filed: 03/19/25 18:22> History of Present Illness HPI Narrative: Patient was walking inside the house trying to feed her crying kids suddenly right knee got locked up, with severe diffuse pain all over the knee anteriorly and posteriorly. Patient have trouble to Wilson right knee. History of deep vein thrombosis currently on Eliquis. History of multiple right lower leg surgery in the past. Right knee pain get worse with any movement, better laying down still. Patient denies any fever, chills, nausea, vomiting. <Jimmy Wallace MD - Last Filed: 03/19/25 18:22> Related Data Home Medications: Home Medications ?Medication ?Instructions ?Recorded ?Confirmed ?Last Taken ?Type acetaminophen 650 mg 650 mg PO Q12H 06/13/23 10/16/23 Unknown History tablet,extended release (Tylenol Arthritis Pain) apixaban 5 mg tablet 5 mg PO BID 06/13/23 10/16/23 Unknown History cholecalciferol (vitamin D3) 25 25 mcg PO DAILY 06/13/23 10/16/23 Unknown History mcg (1,000 unit) capsule cranberry fruit 400 mg capsule 400 mg PO DAILY 06/13/23 10/16/23 Unknown History cyclobenzaprine 10 mg tablet 10 mg PO TID 06/13/23 10/16/23 Unknown History digestive enzymes 1 cap PO DAILY 06/13/23 10/16/23 Unknown History docusate sodium 100 mg capsule 100 mg PO DAILY 06/13/23 10/16/23 Unknown History ferrous sulfate 325 mg (65 mg 325 mg PO DAILY 06/13/23 10/16/23 Unknown History iron) tablet gabapentin 100 mg capsule 100 mg PO DAILY 06/13/23 10/16/23 Unknown History hydrocodone 5 mg-acetaminophen 325 1 tablet PO QHS PRN 06/13/23 10/16/23 Unknown History mg tablet lisinopril 5 mg tablet 5 mg PO DAILY 06/13/23 10/16/23 Unknown History [id number]-[id number] tablet PO 06/13/23 10/16/23 Unknown History fumarate 18 mg-folic acid 400 mcg tablet (One-A-Day Women's Complete) naloxone 0.4 mg/mL injection 0.4 mg IM Q2M PRN 06/13/23 10/16/23 Unknown History syringe naproxen sodium 220 mg tablet 220 mg PO BID PRN 06/13/23 10/16/23 Unknown History (Flanax (naproxen)) rosuvastatin 10 mg tablet 10 mg PO DAILY 06/13/23 10/16/23 Unknown History ondansetron HCl 4 mg tablet 4 mg PO Q8H 10/16/23 10/16/23 Unknown History torsemide 20 mg tablet 20 mg PO QAM 10/16/23 10/16/23 Unknown History <Jimmy Wallace MD - Last Filed: 03/19/25 18:22> Allergies/Adverse Reactions: Allergies Allergy/AdvReac Type Severity Reaction Status Date / Time tetracycline Allergy Unknown Swelling Verified 03/19/25 17:20 pancrelipase Allergy Other Verified 03/19/25 17:20 fentanyl AdvReac Confusion Verified 03/19/25 17:20 <Jimmy Wallace MD - Last Filed: 03/19/25 18:22> Review of Systems Review of Systems: All systems reviewed & are unremarkable except as noted in HPI and below <Jimmy Wallace MD - Last Filed: 03/19/25 18:22> PENDING SALE TO [facility] Past Medical History Medical History: Medical History History of sepsis Adhesive capsulitis of right shoulder Right rotator cuff tear GERD (gastroesophageal reflux disease) DVT (deep venous thrombosis) <Jimmy Wallace MD - Last Filed: 03/19/25 18:22> Surgical History Surgical History: Surgical History History of surgery on lower extremity History of back surgery History of hysterectomy History of cholecystectomy <Jimmy Wallace MD - Last Filed: 03/19/25 18:22> Family History Family History: Family History Mother Lung cancer Father Alcoholism <Jimmy Wallace MD - Last Filed: 03/19/25 18:22> Social History Social History: Social History Smoking status: Never smoker Alcohol intake: never Substance use: never Lack of Transportation: No Lack of Food: Never True Current Housing: I Have Housing Concerned About Future Housing: No Difficulty Paying Gas/Electric Bills: No Difficulty Paying for Meds: No Currently Unemployed: No Education: High School Diploma/GED Difficulty w/ Childcare or Family Care: No Living arrangements: with family Occupation/Education: retired <Jimmy Wallace MD - Last Filed: 03/19/25 18:22> Exam Narrative: General appearance: Well-developed, well-nourished Skin: Normal color Head: Normocephalic, nontraumatic Eyes: Clear conjunctiva ENT: Oropharynx normal, ears normal, nose normal Neck: Supple, nontender Chest and respiratory: Airway patent, no respiratory distress, no accessory muscle use Heart: Regular rate/rhythm Abdomen: Soft, nontender, no organomegaly, quiet bowel sounds Vascular: Normal peripheral pulses, normal capillary refill. 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, no gross motor deficit <Jimmy Wallace MD - Last Filed: 03/19/25 18:22> Course Vital Signs Vital signs: Vital Signs Pulse Rate 84 03/19/25 17:17 Respiratory Rate 16 03/19/25 17:17 Blood Pressure 148/100 H 03/19/25 17:17 Pulse Oximetry 94 03/19/25 17:17 Pulse Rate 84 03/19/25 17:17 Respiratory Rate 16 03/19/25 17:17 Blood Pressure 148/100 H 03/19/25 17:17 Pulse Oximetry 94 03/19/25 17:17 <Jimmy Wallace MD - Last Filed: 03/19/25 18:22> Vital Signs Pulse Rate 84 03/19/25 17:17 Respiratory Rate 16 03/19/25 17:17 Blood Pressure 148/100 H 03/19/25 17:17 Pulse Oximetry 94 03/19/25 17:17 Pulse Rate 84 03/19/25 17:17 Respiratory Rate 16 03/19/25 17:17 Blood Pressure 148/100 H 03/19/25 17:17 Pulse Oximetry 94 03/19/25 17:17 <Denita Atkins APRN - Last Filed: 03/19/25 19:14> MDM - Extremity Injury (Lower) MDM Narrative Medical decision making narrative: Differential diagnosis include injuries like ACL or PCL tear , meniscus tears, fractures or bursitis, tendonitis, patellofemoral pain syndrome X-ray of the right knee ordered Venous ultrasound of the right lower extremity ordered by another provider, patient currently on Eliquis <Jimmy Wallace MD - Last Filed: 03/19/25 18:22> Differential diagnosis include injuries like ACL or PCL tear , meniscus tears, fractures or bursitis, tendonitis, patellofemoral pain syndrome X-ray of the right knee ordered Venous ultrasound of the right lower extremity ordered by another provider, patient currently on Eliquis Medications Ordered: Results: Right knee x-ray indicates Calcifications in the mid calf soft tissues posteriorly. This may represent artifact hemangioma cannot be excluded. Further evaluation advised. Possible fracture in the border of the lateral tibial plateau. Follow-up advised. Severe osteoarthritic changes. Calcifications in the posterior aspect of the midcalf. Pt's CT scan indicates Patient's right knee CT scan indicates No definite fractures seen. Severe osteoarthritic changes. Chondrocalcinosis Diagnosis: Right knee soft tissue injury, right knee strain Consults: Orthopedics (outpatient) Patient Education/Shared MDM: Results of imaging shared with patient. She is requesting pain medication administration prior to discharge. Patient reports she has [place] at home that she can take for pain control after discharge. She was strongly advised to follow-up with her PCP as soon as possible. She can also follow up with Orthopedic surgery if her injury does not improve. She will not be discharged home with any new prescriptions. Patient is on Eliquis so she will not receive any prescription for anti-inflammatories. Strict return precautions provided. Patient verbalized understanding and is in agreement with plan. Vital signs stable at time of discharge. All questions answered. <Denita Atkins APRN - Last Filed: 03/19/25 19:14> Differential Diagnosis Differential diagnosis: Likely other (As above) <Jimmy Wallace MD - Last Filed: 03/19/25 18:22> Likely acute internal derangement of knee <Denita Atkins APRN - Last Filed: 03/19/25 19:14> Imaging Data Attestation: I personally reviewed and interpreted this imaging study as follows: <Denita Atkins APRN - Last Filed: 03/19/25 19:14> Radiologist's impression: Impressions Venous Doppler Study 03/19/25 17:51 IMPRESSION: Negative right lower extremity venous US. No deep vein thrombosis. Knee X-Ray 03/19/25 18:00 IMPRESSION: possible fracture in the border of the lateral tibial plateau. Follow-up advised. Severe osteoarthritic changes. Calcifications in the posterior aspect of the midcalf. <Jimmy Wallace MD - Last Filed: 03/19/25 18:22> Critical Care Time Critical Care Time Critical Care Time: No <Jimmy Wallace MD - Last Filed: 03/19/25 18:22> Discharge Plan Discharge Clinical Impression: Strain of right knee, Knee pain, right, Injury of right lower extremity <Jimmy Wallace MD - Last Filed: 03/19/25 18:22> Patient Disposition: Home <Jimmy Wallace MD - Last Filed: 03/19/25 18:22> Condition: Stable <Jimmy Wallace MD - Last Filed: 03/19/25 18:22> Instructions: Antibiotic Form, P.R.I.C.E. Treatment (ED) <Jimmy Wallace MD - Last Filed: 03/19/25 18:22> Additional Instructions: Please return to the ER with any worsening symptoms. Follow-up with primary care provider as soon as possible. You may also follow up with Orthopedic surgery. Take all medications as prescribed, including regularly scheduled medications. You may continue to take your previously prescribed [place] for pain control. <Jimmy Wallace MD - Last Filed: 03/19/25 18:22> Patient Language: Latvian <Jimmy Wallace MD - Last Filed: 03/19/25 18:22> Prescriptions: No Action ondansetron HCl 4 mg tablet 4 mg PO Q8H torsemide 20 mg tablet 20 mg PO QAM apixaban 5 mg tablet 5 mg PO BID cranberry fruit 400 mg capsule 400 mg PO DAILY Rx Instructions: administer with a meal cyclobenzaprine 10 mg tablet 10 mg PO TID digestive enzymes Capsule 1 cap PO DAILY Rx Instructions: administer with food; swallow whole; do not crush/chew/dissolve/break/cut docusate sodium 100 mg capsule 100 mg PO DAILY ferrous sulfate 325 mg (65 mg iron) tablet 325 mg PO DAILY gabapentin 100 mg capsule 100 mg PO DAILY hydrocodone-acetaminophen 5-325 mg tablet 1 tablet PO QHS PRN lisinopril 5 mg tablet 5 mg PO DAILY naloxone 0.4 mg/mL syringe 0.4 mg IM Q2M PRN Rx Instructions: NTExceed 10 mg total dose/episode naproxen sodium [Flanax (naproxen)] 220 mg tablet 220 mg PO BID PRN One-A-Day Women's Complete 18 mg iron- 400 mcg tablet PO rosuvastatin 10 mg tablet 10 mg PO DAILY acetaminophen [Tylenol Arthritis Pain] 650 mg tablet extended release 650 mg PO Q12H cholecalciferol (vitamin D3) 25 mcg (1,000 unit) capsule 25 mcg PO DAILY dicyclomine 20 mg tablet 20 mg PO TID PRN (Reason: abdominal pain) Qty: 20 0RF ondansetron 4 mg tablet,disintegrating 4 mg PO Q8H PRN (Reason: nausea and vomiting) Qty: 10 0RF tramadol 50 mg tablet 50 mg PO Q6H PRN (Reason: pain) Qty: 15 0RF lidocaine 5 % adhesive patch,medicated 1 patch topical DAILY PRN (Reason: pain) Qty: 15 0RF Rx Instructions: leave on most painful area for up to 12 hrs prednisone 20 mg tablet 40 mg PO DAILY 4 Days Qty: 8 0RF albuterol sulfate 90 mcg/actuation HFA aerosol inhaler 2 puff inhalation QID PRN (Reason: shortness of breath or wheezing) Qty: 8.5 0RF <Jimmy Wallace MD - Last Filed: 03/19/25 18:22> Follow-up/Referrals: Nickolas Preston MD [Physician] - (rigoberto) Misty,[place] De La Cruz [Primary Care Provider] - <Jimmy Wallace MD - Last Filed: 03/19/25 18:22> Time of Disposition: 19:14 <Jimmy Wallace MD - Last Filed: 03/19/25 18:22> 19:14 <Denita Atkins APRN - Last Filed: 03/19/25 19:14>
[2025-03-19 17:17] VITALS: BP 148/100; PULSE 84; RESP 16; O2SAT 94
--- OUTSIDE RECORDS SUMMARY | 2025-03-19 18:08 | XMS_ITS | Clinical Summary ---
Author Organization [facility] Address [address] [place] [address] Care Team Providers Care Pearl Stringer Name Role Phone Raya Cannon DO Primary Care Provider [phone] Source Comments [facility],non-owned Affiliates and Associated Physician Practices is amultiple site organization consisting of ambulatory clinics and hospital sitesin [place], [place], [place]. This disclosure is being madepursuant to the Care Everywhere program and may not contain all information available regarding this patient. Last updated 18.[facility] Allergies Active Allergy Reactions Criticality Noted Date Comments Fentanyl Dizziness,Other Medium 12/21/2016 dizziness Pancrelipase ([id number]-Jrgg-Fgza) GI Discomfort,Nausea and/or Vomiting Low 09/11/2016 Tetracyclines Unknown 12/08/2018 Medications * Be aware that medications may not be up to date on this document. Alwaysverify current medications with the patient. silver sulfADIAZINE (SILVADENE) 1 % cream Apply to affected area 2 times daily 1 Active rosuvastatin (CRESTOR) 10 MG tablet Take 10 mg by mouth once daily 0 Active rosuvastatin (CRESTOR) 5 MG tablet Take 5 mg by mouth Active rizatriptan, disintegrating, (MAXALT LINING FELLER) 10 MG tablet Take 10 mg by mouth every 24 hours as needed 0 Active promethazine (PHENERGAN) 25 MG tablet Take 25 mg by mouth 1 Active nortriptyline (PAMELOR) 50 MG capsule Take 50 mg by mouth once daily Active Magnesium 100 MG Take 65 mg by mouth once daily Active lubiprostone (AMITIZA) 8 MCG CAPS capsule TAKE 1 CAPSULE BY MOUTH NEEDED DIRECTED 1 Active lisinopril (PRINIVIL; ZESTRIL) 10 MG tablet Take 2 tablets by mouth once daily 1 Active carBAMazepine (TEGRETOL) 200 MG tablet Take 200 mg by mouth 2 times daily 0 Active aspirin (ASPIRIN) 325 MG tablet Take 325 mg by mouth once daily Active prochlorperazine (COMPAZINE) 10 MG tablet Take 10 mg by mouth every 8 hours as needed for Nausea/Vomiti ng Active Active Problems Problem Noted Date Diagnosed Date Calcification of aorta 10/23/2021 Aspirin long-term use 12/12/2020 Atrial fibrillation 02/04/2020 Atherosclerotic heart disease 01/12/2016 Overview (10/23/2021): Date Onset: 11/07/2017 Date Onset: 01/12/2016 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 Cool Date Onset: 02/19/2013 Allergic rhinitis 01/15/2013 Overview (10/23/2021): Date Onset: 01/15/2013 Date Onset: 02/12/2013 Cellulitis of knee 06/30/2012 Asthma 12/27/2011 Overview (10/23/2021): Date Onset: 2009 Social History Tobacco Use Types Packs/Day Years Used Date Smoking Tobacco: Never Smokeless Tobacco: Never Comments No Sex and Gender Information Value Date Recorded Sex Assigned at Not on file Legal Sex Female 6:16 AM AUTHOR'S AGENT Gender Identity Not on file Sexual Orientation Not on file Last Filed Vital Signs Vital Sign Reading Time Taken Comments Blood Pressure 122/88 10/23/2021 2:20 PM AUTHOR'S AGENT Pulse 94 10/23/2021 2:20 PM AUTHOR'S AGENT Temperature 36.8 C (98.3 F) 10/23/2021 2:20 PM AUTHOR'S AGENT Respiratory Rate 16 10/23/2021 2:20 PM AUTHOR'S AGENT Oxygen Saturation 97% 10/23/2021 2:20 PM AUTHOR'S AGENT Inhaled Oxygen Concentration - - Weight 81.6 kg (180 lb) 10/23/2021 2:20 PM AUTHOR'S AGENT Height 165.1 cm (5' 5 ) 10/23/2021 2:20 PM AUTHOR'S AGENT Body Mass Index 29.95 10/23/2021 2:20 PM AUTHOR'S AGENT Plan of Treatment Health Maintenance Due Date Last Done Comments BONE DENSITY TESTING 1955 COLOGUARD (AGES 45-75) - COLON CA SCREENING 1955 COLON MONITORING 1955 COLONOSCOPY - COLON CA SCREENING 1955 CT COLONOGRAPHY - COLON CA SCREENING 1955 Colorectal Cancer Screening 1955 FIT - COLON CA SCREENING 1955 FLEX SIG - COLON CA SCREENING 1955 MAMMOGRAM 1955 HEPATITIS C SCREENING 05/17/1973 DTAP/TDAP/TD VACCINES (1 - Tdap) 1974 PNEUMOCOCCAL VACCINE 50+ (1 of 1 - PCV) 2005 ZOSTER VACCINE (1 of 2) 2005 SCREENING FOR DIABETES 10/23/2021 COVID-19 VACCINE (3 - season) 2024 03/09/2021, 02/08/2021 DEPRESSION SCREENING 11/11/2024 INFLUENZA VACCINE (Season Ended) 2025 09/09/2020, 08/12/2018, 08/09/2017, Additional history exists Respiratory Syncytial Virus (RSV) Vaccine Pt: or over 60 yrs (1 - 1-dose 75+ series) 2030 HEPATITIS B VACCINE Aged Out No longe r eligible based on patient's age to complete this topic HIB VACCINE Aged Out No longer eligi ble based on patient's age to complete this topic HPV VACCINE Aged Out No longer eligi ble based on patient's age to complete this topic MENINGOCOCCAL (Group B) VACCINE SHARED DECISION-MAKING Aged Out No longer eligible based on patient's age to complete this topic MENINGOCOCCAL GROUPS A/C/Y/W VACCINE Aged Out No longer eligible based on patient's age to complete this topic Insurance [facility] Care Teams Pearl Stringer Relationship Specialty Start Date End Date Raya Cannon DO [address] [place] [address] [place] [id number] PCP - General Family Medicine 10/23/21
--- OUTSIDE RECORDS SUMMARY | 2025-03-19 18:08 | XMS_ITS | Clinical Summary ---
Author Organization [facility] Address [address], [facility] [address] [place] [address] Phone Care Team Providers Care Hat And Cap Opener Name Role Phone Raya Cannon Primary Care Provider [phone] Leif Valencia MD Unavailable [phone] Allergies Active Allergy Reactions Criticality Noted Date Comments Fentanyl Other (see Comments) 12/08/2018 dizziness Pancrelipase (Fmj-Hmsx-Myui) Nausea 019 Tetracyclines & Related Unknown 12/08/2018 Medications Cranberry 400 MG Capsule Take 450 mg by mouth daily. Active cyclobenzaprine (FLEXERIL) 10 MG Tablet Take 10 mg by mouth 3 times daily as needed. Active Digestive Enzymes (DIGESTIVE ENZYME PO) Take by mouth. Acti ve ferrous sulfate 325 (65 Fe) MG Tablet Take 325 mg by mouth Every other day. Active HYDROcodone-joan taminophen (NORCO) 5-325 MG Tablet Take 0.5 Tabs by mouth every 12 hours as needed. Active Acetaminophen (TYLENOL ARTHRITIS PAIN PO) Take by mouth. Activ e Multiple Vitamins-Calciu m (ONE-A-DAY WOMENS FORMULA) Tablet Take 1 Tab by mouth daily. 7 Active docusate sodium (COLACE) 100 MG Capsule Take 200 mg by mouth. Active naloxone HCl (Narcan) 4 MG/0.1ML Liquid 3 Active naproxen sodium (ANAPROX) 220 MG Tablet Take 220 mg by mouth. Active rosuvastatin (CRESTOR) 10 MG Tablet Take 10 mg by mouth. 3 Active Vitamin D3 1000 UNIT Tablet Take 25 mcg by mouth. Active lisinopril (PRINIVIL, ZESTRIL) 10 MG Tablet TAKE 2 TABLETS BY MOUTH ONCE DAILY 3 Active ondansetron (ZOFRAN) 4 MG Tablet TAKE 1 TABLET BY MOUTH EVERY 8 HOURS NEEDED FOR NAUSEA 3 Active DULoxetine (CYMBALTA) [address] Particles Take 30 mg by mouth. 4 Active Lidocaine 1.8 % Patch by Apply externally route. Active lisinopril (PRINIVIL, ZESTRIL) 5 MG Tablet Take 5 mg by mouth daily. 4 Active furosemide (LASIX) 20 MG Tablet Take 10 mg by mouth daily. 4 Active apixaban (Eliquis) 5 MG Tablet Take 1 Tablet by mouth 2 times daily. 4 Active gabapentin (NEURONTIN) 300 MG Capsule 300 mg. 4 Active Active Problems Problem Noted Date Diagnosed Date Ely's esophagus 11/20/2021 Calcification of aorta 10/23/2021 Aspirin long-term use 12/12/2020 Atrial fibrillation 02/04/2020 Neutropenia 12/08/2018 Anemia due to unknown mechanism 12/08/2018 Elevated d-dimer 03/03/2018 Overview (11/20/2021): Date Onset: 03/03/2018 Familial multiple lipoprotein-type hyperlipidemi a 02/24/2018 Overview (11/20/2021): Date Onset: 02/24/2018 Migraine 02/07/2018 Overview (11/20/2021): Date Onset: 02/07/2018 Temporomandibular joint disorder 02/07/2018 Overview (11/20/2021): Date Onset: 03/28/2018 Date Onset: 01/15/2013 Date Onset: 02/07/2018 Date Onset: 02/24/2018 Chronic headaches 02/12/2017 Overview (11/20/2021): Date Onset: 02/12/2017 Iron deficiency anemia, unspecified 02/12/2017 Overview (11/20/2021): Date Onset: 02/12/2017 Date Onset: 11/07/2017 Headache 01/01/2017 Overview (11/20/2021): Date Onset: 01/01/2017 Vertigo 01/01/2017 Overview (11/20/2021): Date Onset: 01/01/2017 Neuroforaminal stenosis of lumbar spine 09/11/20 16 Overview (11/20/2021): Date Onset: 09/11/2016 Degeneration of intervertebral disc of lumbar re gion 01/12/2016 Overview (11/20/2021): Date Onset: 01/12/2016 Atherosclerotic heart disease 01/12/2016 Overview (11/20/2021): Date Onset: 11/07/2017 Date Onset: 01/12/2016 Date Onset: 11/07/2017 Date Onset: 01/12/2016 Deep vein thrombosis (DVT) 07/21/2014 Overview (11/20/2021): Note: oct 2011 rle, then ok for a yr then dr morales said dvts in same leg. coumadin after lovenox. Date Onset: 11/27/2011 Hyponatremia 04/02/2013 Overview (11/20/2021): Date Onset: 04/02/2013 Note: due to increased Lisinopril 134 Date Onset: 09/14/2014 Nausea with vomiting 02/19/2013 Overview (11/20/2021): Date Onset: 02/19/2013 Date Onset: 05/26/2013 Hernia, hiatal 02/19/2013 Overview (11/20/2021): Date Onset: 02/19/2013 Date Onset: 02/19/2013 Esophageal stricture 02/19/2013 Overview (11/20/2021): Note: Ruled out per ERCP per Dr. Cool Date Onset: 02/19/2013 Note: Ruled out per ERCP per Dr. Cool Date Onset: 02/19/2013 Essential (primary) hypertension 02/12/2013 Overview (11/20/2021): Date Onset: 01/15/2013 Allergic rhinitis 01/15/2013 Overview (11/20/2021): Date Onset: 01/15/2013 Date Onset: 02/12/2013 Date Onset: 01/15/2013 Date Onset: 02/12/2013 Abdominal hernia 01/15/2013 Overview (11/20/2021): Date Onset: 01/15/2013 Radiculopathy 10/21/2012 Overview (11/20/2021): Date Onset: 01/12/2016 Note: right leg Chronic low back pain 10/21/2012 Overview (11/20/2021): Date Onset: 02/07/2018 Date Onset: 09/14/2014 Intestinal obstruction 01/29/2012 Overview (11/20/2021): Note: Norma: Small bowel obstrucion Date Onset: 07/17/2007 Pancreatitis 01/29/2012 Overview (11/20/2021): Note: Chronic per Dr. Cool on 05/19/2014 Date Onset: 2000 Asthma 12/27/2011 Overview (11/20/2021): Date Onset: 2009 Date Onset: 2009 Chest pain 12/27/2011 Overview (11/20/2021): Note: Reny: Normal Cath Date Onset: 2001 Gastro-esophageal reflux disease without esophag itis 12/27/2011 Overview (11/20/2021): Note: Silvina: Hiatal hernia with some esophageal reflus Date Onset: 2007 Umbilical hernia 12/27/2011 Overview (11/20/2021): Note: Bush: Repaired with mesh in 2004 Date Onset: Varicose veins of lower extremities with inflamm ation 12/27/2011 Overview (11/20/2021): Date Onset: 03/28/2018 Note: Vein stripping Date Onset: 2001 Date Onset: 07/24/2016 Immunizations Immunization Administration Dates Next Due Influenza Vaccine 08/02/2016 Influenza Vaccine,unspecifie d Formulation 08/12/2018,08/09/2017,08/02/2016,2014,09/03/2014,09/17/2013,08/19/2012 Influenza, High-dose, Quadrivalent 09/09/2020, Influenza, Seasonal, Injecta ble, Undefined 08/23/2015 Influenza, high-dose, trivalent, PF 11/06/2019 MMR Vaccine 01/16/1995 Pneumococcal Vaccine - 13 Valent 09/16/2020 TDAP Vaccine 02/13/2019,08/15/2017,01/13/2015 Zoster Vaccine Recombinant 09/16/2020,05/30/2020 Family History Medical History Relation Name Comments Cancer Mother lung Relation Name Status Comments Mother Social History Tobacco Use Types Packs/Day Years Used Date Smoking Tobacco: Never Smokeless Tobacco: Never Tobacco Cessation:Counseling Given: Not Answered Alcohol Use Standard Drinks/Week Comments No 0 (1 standard drink = 0.6 oz pur e alcohol) PHQ-2 Answer Date Recorded Total Score - Questions 1-9 0 05/11 Sexually Active Control Partners Comments Not Currently Comments No Sex and Gender Information Value Date Recorded Sex Assigned at Not on file Legal Sex Female 9:29 PM CDT Gender Identity Not on file Sexual Orientation Not on file Last Filed Vital Signs Vital Sign Reading Time Taken Comments Blood Pressure 110/64 10/05/2024 11:00 AM FORMULATOR COMPOUNDER Pulse 58 10/05/2024 11:00 AM FORMULATOR COMPOUNDER Temperature 36.6 C (97.8 F) 10/05/2024 11:00 AM FORMULATOR COMPOUNDER Respiratory Rate 18 10/05/2024 11:00 AM FORMULATOR COMPOUNDER Oxygen Saturation 97% 10/05/2024 11:00 AM FORMULATOR COMPOUNDER Inhaled Oxygen Concentration - - Weight 81 kg (178 lb 9.6 oz) 10/05/2024 11:00 AM FORMULATOR COMPOUNDER Height 170.2 cm (5' 7 ) 10/05/2024 11:00 AM FORMULATOR COMPOUNDER Body Mass Index 27.97 10/05/2024 11:00 AM FORMULATOR COMPOUNDER Plan of Treatment Upcoming Encounters Date Type Department Care Team (Late st Contact Info) Description 04/08/2025 10:15 AM CDT [facility] [address] [address] Leif Valencia MD [address] [place] [phone] Health Maintenance Due Date Last Done Comments Hepatitis C Virus (HCV) Screening 1955 Colonoscopy 2000 Colorectal Cancer Screening 2000 Cologuard 2005 Immunochemical Fecal Occult Blood 2005 Respiratory Syncytial Virus (RSV) Immunization (Adult) (1 - Risk 60-74 years 1-dose series) 2015 Mammogram 02/12/2024 02/11/2023, 04/0 01/2023, 02/06/2022, Additional history exists SARS-COV-2 Immunization (2023- season) 2024 03/09/2021, 02/08/2021 DEXA Bone Density 09/03/2024 09/03/2022 Td Immunization Every 10 Years (Adults With 1 Tdap) 02/13/2029 02/13/2019, 08/15/2017, 01/13/2015 DTaP/Tdap/Td Immunization Discontinued 2018, 08/15/2017, 01/13/2015 Zoster Immunization Completed 09/16/2020, 0 Pneumococcal Immunization (50+ years) Completed 04/18/2023, 09/16/2020 Pneumococcal Immunization Combined Discontinued 04/18/2023, 09/16/2020 Influenza Immunization Completed 4, 08/17/2022, 09/09/2020, Additional history exists Hepatitis B Immunization Aged Out No longer eligible based on patient's age to complete this topic Meningococcal Immunization (ACWY) Aged Out No longer eligible based on patient's age to complete this topic Rotavirus Immunization Aged Out No lo nger eligible based on patient's age to complete this topic Insurance [facility] MEDICARE RAILROAD Care Teams Hat And Cap Opener Relationship Specialty Start Date End Date Raya Cannon DO [address] [place] [address] [place] [address] PCP - General Family Medicine 12/05/18 Leif Valencia MD [address] [place] [address] [address] [place] [id number] Consulting Physician Oncology 12/05/18
--- OUTSIDE RECORDS SUMMARY | 2025-03-19 18:08 | XMS_ITS | Encounter Summary ---
Author Organization [facility] Address [address] [place] [address] Phone Care Team Providers Care Entry Level Lab Technician Name Role Phone CannonRaya Noe MILLIGAN Primary Care Provider [phone] Leif Valencia MD Unavailable Encounter Details Date Type Department Care Team (Late st Contact Info) Description 08/24/2020 Telephone [facility] [place] [address] [phone] Leif Valencia MD [address] [address] Social History Tobacco Use Types Packs/Day Years Used Date Smoking Tobacco: Never Smokeless Tobacco: Never Alcohol Use Standard Drinks/Week Comments No 0 (1 standard drink = 0.6 oz pur e alcohol) PHQ-2 Answer Date Recorded PHQ-2 Score 0 07/24/2019 Sexually Active Control Partners Comments Not Currently Comments No Sex and Gender Information Value Date Recorded Sex Assigned at Not on file Legal Sex Female 9:29 PM CDT Gender Identity Not on file Sexual Orientation Not on file documented as of this encounter Miscellaneous Notes * Telephone Encounter - Sari Hough N - 08/24/2020 1:04 PM CDT PT is canceling apt due to waiting for insurance to cover her again. She will call as soon as she gets the approval. documented in this encounter Plan of Treatment Upcoming Encounters Date Type Department Care Team (Late st Contact Info) Description 04/08/2025 10:15 AM CDT Office Visit [facility] [address] [address] Leif Valencia MD [address] [place] [phone] documented as of this encounter Visit Diagnoses Not on filedocumented in this encounter Additional Health Concerns Assessment Noted Time PHQ-9 Depression Total Score: 0 05/02/20 20 8:53 AM CDT documented as of this encounter Care Teams Entry Level Lab Technician Relationship Specialty Start Date End Date Raya Cannon DO [address] [place] [address] [place] [address] PCP - General Family Medicine 12/05/18 Leif Valencia MD [address] [place], [place] [phone] Consulting Physician Oncology 12/05/18 documented as of this encounter
--- OUTSIDE RECORDS SUMMARY | 2025-03-19 18:08 | XMS_ITS | CONTINUITY OF CARE DOCUMENT ---
Author Name latisha good Address Unknown Organization [facility] [address] Address [address] [facility] [address] [place] [address] Phone [phone] Care Team Providers Care Software Deployment Engineer Name Role Phone Pavel LARKIN, Delbert Unavailable Roosevelt Botello DPM Unavailable NERY FREGOSO D.O Unavailable [phone] PROBLEMS Condition Status Date Provider Notes Hypertension active Delbert Zhao MD Wound infection active Delbert Zhao MD Varicose veins active Delbert Zhao MD VENOUS INSUFFICIENCY active Delbert Zhao MD ENCOUNTERS Date Type Provider Location Encounter Diag nosis - In-person encounter Office Visit Delbert Zhao MD [place] [facility] HypertensionWound infectionVaricose veinsVENOUS INSUFFICIENCY VITAL SIGNS Date Observation Value Provider Body Mass Index (Ratio) 29.75 kg/m2 Joshua Zhao MD blood pressure, diastolic 75 mm[Hg] Li nkLogic blood pressure, systolic 118 mm[Hg] Shanae kLogic blood pressure, diastolic 75 mm[Hg] Ca therine Enoch blood pressure, systolic 118 mm[Hg] Cat herine Jeff oxygen saturation, oximetry 98 % Dixie Jeff respiratory rate E&M 14 /min Catheri ne Enoch pulse rate 82 /min Dixie Enoch weight E&M 190 [lb_av] Dixie Enoch height E&M 67 [in_i] Dixie Enoch blood pressure, cuff size regular Ca therine Jeff SOCIAL HISTORY Date Observation Value Provider number of grandchildren Delbert Zhao MD U lucio Zhao MD social history E&M S moking History: P curry has never smoked. Delbert Zhao MD smoking status Never smoker Dixie Mialgros s INSURANCE PROVIDERS Payer name Policy type / Coverage type [employer] party ID [facility] Other [id number] RAILROAD MEDICARE Medicare [id number] TREATMENT PLAN Date Name Performer [id number],C,l eft ankle wound was opened 2 months ago. Pt is seeing quality review specialist and having it cleaned and bandaged every 3 days. O rders: V enous Doppler Bilateral LE ([id number]) V enous Doppler Bilateral LE ([id number]) Delbert Zhao MD [id number],C, B P today: 118/75 Delbert Zhao MD [id number],C, O rders: V enous Doppler Bilateral LE ([id number]) Delbert Zhao MD [id number],C,h x. need to check veins O rders: V enous Doppler Bilateral LE ([id number]) V enous Doppler Bilateral LE ([id number]) Delbert Zhao MD Cardiology:left ankl e wound was opened 2 months ago. Pt is seeing quality review specialist and having it cleaned and bandaged every 3 days. O rders: V enous Doppler Bilateral LE ([id number]) V enous Doppler Bilateral LE ([id number]) Delbert Zhao MD Cardiology: B P today: 118/75 Delbert Zhao MD Cardiology: O rders: V enous Doppler Bilateral LE ([id number]) Delbert Zhao MD Cardiology:hx. need to check veins O rders: V enous Doppler Bilateral LE ([id number]) V enous Doppler Bilateral LE ([id number]) Delbert Zhao MD Date Name Venous Doppler Bilat eral LE - Reflux HISTORY OF PROCEDURES Procedure Date Procedure Name Provider Procedure Notes S tatus EKG Delbert Zhao MD completed
[2025-03-19 18:55] VITALS: RESP 17
[2025-03-19] MEDS: HYDROcodone/acetaminophen (*CRX) 5-325 MG TABLET 1 TAB PO (19:22)
== END 2025-03-19 19:50 | disposition home or self-care (01) ==
PROVIDERS: Emergency Provider Registered Nurse; PCP Nurse Practitioner
DX: S86.811A Strain of other muscle(s) and tendon(s) at lower leg level, right leg, initial encounter (principal); X58.XXXA Exposure to other specified factors, initial encounter; Z86.718 Personal history of other venous thrombosis and embolism; Z79.01 Long term (current) use of anticoagulants; K21.9 Gastro-esophageal reflux disease without esophagitis
CPT/HCPCS: 73562; 73700; 93971; 99284; A9270

== ENCOUNTER 2025-03-23 13:57 | Outpatient (CLI) | payer MEDICARE, OTHER, SELFPAY ==
--- OUTSIDE RECORDS SUMMARY | 2025-03-23 14:27 | XMS_ITS | Clinical Summary ---
Author Organization [facility] Address [address] [facility] [place] [address] Care Team Providers Care Entertainment Dancer Name Role Phone Raya Cannon DO Primary Care Provider [phone] Source Comments [facility],non-owned Affiliates and Associated Physician Practices is amultiple site organization consisting of ambulatory clinics and hospital sitesin [place], [place], [place] and [place]. This disclosure is being madepursuant to the Care Everywhere program and may not contain all information available regarding this patient. Last updated 18.[facility] Allergies Active Allergy Reactions Criticality Noted Date Comments Fentanyl Dizziness,Other Medium 12/21/2016 dizziness Pancrelipase (Pve-Pdpy-Gmhb) GI Discomfort,Nausea and/or Vomiting Low 09/11/2016 Tetracyclines [...] mg by mouth Active rizatriptan, disintegrating, (MAXALT WAREHOUSE CHECKER) 10 MG tablet Take 10 mg by [...] on file Legal Sex Female 6:16 AM GREENHOUSE TRANSPLANTER Gender Identity Not on file Sexual Orientation Not on file Last Filed Vital Signs Vital Sign Reading Time Taken Comments Blood Pressure 122/88 10/23/2021 2:20 PM GREENHOUSE TRANSPLANTER Pulse 94 10/23/2021 2:20 PM GREENHOUSE TRANSPLANTER Temperature 36.8 C (98.3 F) 10/23/2021 2:20 PM GREENHOUSE TRANSPLANTER Respiratory Rate 16 10/23/2021 2:20 PM GREENHOUSE TRANSPLANTER Oxygen Saturation 97% 10/23/2021 2:20 PM GREENHOUSE TRANSPLANTER Inhaled Oxygen Concentration - - Weight 81.6 kg (180 lb) 10/23/2021 2:20 PM GREENHOUSE TRANSPLANTER Height 165.1 cm (5' 5 ) 10/23/2021 2:20 PM GREENHOUSE TRANSPLANTER Body Mass Index 29.95 10/23/2021 2:20 PM GREENHOUSE TRANSPLANTER Plan of Treatment Health Maintenance Due Date [...] patient's age to complete this topic Insurance [facility] Care Teams Entertainment Dancer Relationship Specialty Start Date End Date Ryaa Cannon DO [address] [place] [address] [place] [address] PCP - General Family Medicine 10/23/21
--- OUTSIDE RECORDS SUMMARY | 2025-03-23 14:27 | XMS_ITS | Encounter Summary ---
Author Organization [facility] Address [address] [place] [address] Phone Care Team Providers Care Welt Trimming Machine Operator Name Role Phone CannonRaya Noe MILLIGAN Primary Care Provider Leif [place] MD Unavailable Encounter Details Date Type Department Care Team (Late st Contact Info) Description 08/24/2020 Telephone [facility] [place] [address] [phone] Leif Valencia MD [address] [address] Social History Tobacco Use Types [...] CDT Office Visit [facility] [address] [address] Leif Valencia MD [address] [place] [phone] documented as of this encounter Visit Diagnoses Not on filedocumented in this encounter Additional Health Concerns Assessment Noted Time PHQ-9 Depression Total Score: 0 05/02/20 20 8:53 AM CDT documented as of this encounter Care Teams Welt Trimming Machine Operator Relationship Specialty Start Date End Date Raya Cannon DO [address] [place] [address] [place] [address] PCP - General Family Medicine 12/05/18 Leif Valencia MD [address] [place], [place] [phone] Consulting Physician Oncology 12/05/18 documented as of this encounter
--- OUTSIDE RECORDS SUMMARY | 2025-03-23 14:27 | XMS_ITS | Clinical Summary ---
Author Organization [facility] Address [address], [facility] [address] [place] [address] Phone Care Team Providers Care Radar Repairer Name Role Phone Raya Cannon Primary Care Provider [phone] Leif Valencia MD Unavailable [phone] Allergies Active Allergy Reactions Criticality Noted Date Comments Fentanyl Other (see Comments) 12/08/2018 dizziness Pancrelipase (Vao-Rhcx-Hlej) Nausea 019 Tetracyclines & Related Unknown 12/08/2018 [...] Comments Blood Pressure 110/64 10/05/2024 11:00 AM ELEVATING GRADER OPERATOR Pulse 58 10/05/2024 11:00 AM ELEVATING GRADER OPERATOR Temperature 36.6 C (97.8 F) 10/05/2024 11:00 AM ELEVATING GRADER OPERATOR Respiratory Rate 18 10/05/2024 11:00 AM ELEVATING GRADER OPERATOR Oxygen Saturation 97% 10/05/2024 11:00 AM ELEVATING GRADER OPERATOR Inhaled Oxygen Concentration - - Weight 81 kg (178 lb 9.6 oz) 10/05/2024 11:00 AM ELEVATING GRADER OPERATOR Height 170.2 cm (5' 7 ) 10/05/2024 11:00 AM ELEVATING GRADER OPERATOR Body Mass Index 27.97 10/05/2024 11:00 AM ELEVATING GRADER OPERATOR Plan of Treatment Upcoming Encounters Date Type Department Care Team (Late st Contact Info) Description 04/08/2025 10:15 AM CDT Office Visit [facility] [address] [address] Leif Valencia MD [address] [place] [phone] Health Maintenance Due Date Last Done [...] patient's age to complete this topic Insurance [facility] MEDICARE RAILROAD Care Teams Radar Repairer Relationship Specialty Start Date End Date Raya Cannon DO [address] [place] [address] [place] [address] PCP - General Family Medicine 12/05/18 Leif Valencia MD [address] [place] [address] [address] [place] [phone] Consulting Physician Oncology 12/05/18
--- OUTSIDE RECORDS SUMMARY | 2025-03-23 14:27 | XMS_ITS | CONTINUITY OF CARE DOCUMENT ---
Author Name latisha good Address Unknown Organization [facility] Address [address] [facility] [address] [place] [address] Phone [phone] Care Team Providers Care Publication Designer Name Role Phone Pavel LARKIN, Delbert Unavailable [phone] Roosevelt Botello DPM Unavailable NERY FREGOSO D.O Unavailable PROBLEMS Condition Status Date Provider Notes Hypertension active Delbert Zhao MD VENOUS INSUFFICIENCY active Delbert Zhao MD Varicose veins active Delbert Zhao MD Wound infection active Delbert Zhao MD ENCOUNTERS Date Type Provider Location Encounter Diag nosis - In-person encounter Office Visit Delbert Zhao MD [place] [facility] HypertensionWound infectionVaricose veinsVENOUS INSUFFICIENCY VITAL SIGNS Date Observation Value Provider Body Mass Index (Ratio) 29.75 kg/m2 Joshua Zhao MD blood pressure, diastolic 75 mm[Hg] Li nkLogic blood pressure, systolic 118 mm[Hg] Shanae kLogic blood pressure, diastolic 75 mm[Hg] Ca therine [place] blood pressure, systolic 118 mm[Hg] Cat herine [place] oxygen saturation, oximetry 98 % Dixie [place] respiratory rate E&M 14 /min Catheri ne Enoch pulse rate 82 /min Dixie [place] weight E&M 190 [lb_av] Dixie [place] height E&M 67 [in_i] Dixie Enoch blood pressure, cuff size regular Ca therine [place] SOCIAL HISTORY Date Observation Value Provider number of grandchildren Delbert Zhao MD U lucio Zhao MD social history E&M S moking History: P curry has never smoked. Delbert Zhao MD smoking status Never smoker Dixie Milagros s INSURANCE PROVIDERS Payer name Policy type / Coverage type [place] red libertarian ID [facility] Other [id number] [employer]RO[employer] MEDICARE Medicare [id number] TREATMENT PLAN Date Name Performer [id number],C,l eft ankle wound was opened 2 months ago. Pt is seeing drug regulatory affairs specialist and having it cleaned and bandaged every 3 days. O rders: V enous Doppler Bilateral LE ([id number]) V enous Doppler Bilateral LE ([id number]) Delbert Zhao MD [id number],C, B P today: 118/75 Delbert Zhao MD [id number],C, O rders: V enous Doppler Bilateral LE ([id number]) Delbert Zhao MD [id number],C,h x. need to check veins O rders: V enous Doppler Bilateral LE ([id number]) V enous Doppler Bilateral LE ([id number]) Delbert Zhao MD Cardiology:left ankl e wound was opened 2 months ago. Pt is seeing drug regulatory affairs specialist and having it cleaned and bandaged every 3 days. O rders: V enous Doppler Bilateral LE ([id number]) V enous Doppler Bilateral LE ([id number]) Delbert Zhao MD Cardiology: B P today: 118/75 Delbert Zhao MD Cardiology: O rders: V enous Doppler Bilateral LE ([id number]) Delbert Zhao MD Cardiology:hx. need to check veins O rders: V enous Doppler Bilateral LE ([id number]) V enous Doppler Bilateral LE ([id number]) Delbert Zhao MD Date Name Venous Doppler Bilat eral LE - Reflux HISTORY OF PROCEDURES Procedure Date Procedure Name Provider Procedure Notes S tatus EKG Delbert Zhao MD completed
[2025-03-23 16:30] LABS: Free T4 Free Thyroxine 1.55 ng/dL (0.78-2.19)
[2025-03-23 16:37] LABS: Cholesterol 172 mg/dL (0-200); HDL Direct 50 mg/dL; Triglycerides 81 mg/dL (<150)
[2025-03-23 16:48] LABS: LDL Cholesterol Direct 68 mg/dL
[2025-03-23 17:13] LABS: Thyroid Stimulating Hormone 0.662 uIU/mL (0.465-4.680)
== END 2025-03-23 13:58 | disposition home or self-care (01) ==
PROVIDERS: PCP Nurse Practitioner
DX: E78.2 Mixed hyperlipidemia (principal)
CPT/HCPCS: 36415; 80061; 82607; 84439; 84443

== ENCOUNTER 2025-08-28 18:21 | Emergency (ER) | payer MEDICARE, OTHER, SELFPAY ==
--- NOTE | ~2025-08-28 | XR_ITS ---
EXAMINATION: XR shoulder LT min 2V, 08/28/2025 19:41 CDT HISTORY: bump with pain COMPARISON: No comparisons available. Findings: No acute fracture or malalignment. Moderate degenerative changes Soft tissues unremarkable. Impression: No acute fracture or malalignment. Reviewed, dictated and finalized at location P. Impression: No acute fracture or malalignment.
--- OUTSIDE RECORDS SUMMARY | 2025-08-28 18:24 | XMS_ITS | Clinical Summary ---
Author Organization [facility] Address [address], [facility] [address] [place] [address] Phone Care Team Providers Care Hydropulper Operator Name Role Phone Raya Cannon Primary Care Provider [phone] Leif Valencia MD Unavailable [phone] Allergies Active Allergy Reactions Criticality Noted Date Comments Fentanyl Other (see Comments) 12/08/2018 dizziness Pancrelipase (Sqq-Uwah-Udki) Nausea 019 Tetracyclines & Related Unknown 12/08/2018 [...] 5 mg by mouth daily. 4 Active apixaban (Eliquis) 5 MG Tablet Take 1 Tablet by mouth 2 times daily. 4 Active gabapentin (NEURONTIN) 300 MG Capsule 300 mg. 4 Active albuterol 108 (90 Base) MCG/ACT Aerosol Solution take 2 Puffs by inhalation. 5 Active cyanocobalamin 1000 MCG Tablet Take 1,000 mcg by mouth. Active Probiotic Product (Probiotic Blend) Capsule Take 1 Capsule by mouth. Active torsemide (DEMADEX) 20 MG Tablet Take 20 mg by mouth daily. 5 Active Active Problems Problem Noted Date Diagnosed [...] 2009 Chest pain 12/27/2011 Overview (11/20/2021): Note: Selke: Normal Cath Date Onset: 2001 Gastro-esophageal reflux disease without esophag itis 12/27/2011 Overview (11/20/2021): Note: Rossanavanovicvirgilio: Hiatal hernia with some esophageal reflus Date [...] Sign Reading Time Taken Comments Blood Pressure 134/82 04/08/2025 10:19 AM CDT Pulse 90 04/08/2025 10:19 AM CDT Temperature 36.9 C (98.4 F) 04/08/2025 10:19 AM CDT Respiratory Rate 18 04/08/2025 10:1 9 AM CDT Oxygen Saturation 96% 04/08/2025 10: 19 AM CDT Inhaled Oxygen Concentration - - Weight 79.3 kg (174 lb 12.8 oz) 025 10:19 AM CDT Height 170.2 cm (5' 7) 04/08/2025 10:1 9 AM CDT Body Mass Index 27.38 04/08/2025 10:19 AM CDT Plan of Treatment Upcoming Encounters Date Type Department Care Team (Late st Contact Info) Description 09/30/2025 10:15 AM REPORTER ANCHOR Office Visit [facility] [address] [address] Leif Valencia MD [address] [facility] [address] [place] [address] Health Maintenance Due Date Last Done Comments Hepatitis C Virus (HCV) Screening 1955 Cologuard 2000 Colonoscopy 2000 Colorectal Cancer Screening 2000 Immunochemical Fecal Occult Blood 2000 Respiratory Syncytial Virus (RSV) Immunization (Adult) (1 - Risk 60-74 years 1-dose series) 2015 DEXA Bone Density 09/03/2024 09/03/2022 Influenza Immunization (#1) 07/12/202508/12, 08/17/2022, 09/09/2020, Additional history exists SARS-COV-2 Immunization ( season) 2025 03/09/2021, 02/08/2021 Mammogram 02/23/2026 02/23/2025, 02/09, 02/11/2023, Additional history exists Td Immunization Every 10 Years (Adults With 1 Tdap) 02/13/2029 02/13/2019, 08/15/2017, 01/13/2015 DTaP/Tdap/Td Immunization Discontinued 2018, 08/15/2017, 01/13/2015 Zoster Immunization Completed 09/16/2020, 0 Pneumococcal Immunization (50+ years) Completed 04/18/2023, 09/16/2020 Pneumococcal Immunization Combined Discontinued 04/18/2023, 09/16/2020 Medicare Initial AWV [id number] Completed 01/14/2024 Hepatitis B Immunization Aged Out No longer eligible based on patient's age to complete this topic Human Papillomavirus (HPV) Immunization Aged Out No longer eligible based on patient's age to complete this topic Meningococcal Immunization (ACWY) Aged Out No longer eligible based on patient's age to complete this topic Rotavirus Immunization Aged Out No lo nger eligible based on patient's age to complete this topic Insurance [facility] MEDICARE RAILROAD Care Teams Hydropulper Operator Relationship Specialty Start Date End Date Raya Cannon DO [address] [place] [address] [place] [address] PCP - General Family Medicine 12/05/18 Leif Valencia MD [address] [place] [id number] Consulting Physician Oncology 12/05/18
--- OUTSIDE RECORDS SUMMARY | 2025-08-28 18:24 | XMS_ITS | Clinical Summary ---
Author Organization [facility] Address [address] [facility] [place] [address] Care Team Providers Care Owner Manager Name Role Phone Raya Cannon DO Primary Care Provider [phone] Source Comments [facility],non-owned Affiliates and Associated Physician Practices is amultiple site organization consisting of ambulatory clinics and hospital sitesin [place], [place], [place] and [place]. This disclosure is being madepursuant to the Care Everywhere program and may not contain all information available regarding this patient. Last updated 18.[facility] Allergies Active Allergy Reactions Criticality Noted Date Comments Fentanyl Dizziness,Other Medium 12/21/2016 dizziness Pancrelipase (Rdy-Aece-Klbq) GI Discomfort,Nausea and/or Vomiting Low 09/11/2016 Tetracyclines [...] mg by mouth Active rizatriptan, disintegrating, ([employer] WIRE INSULATOR) 10 MG tablet Take 10 mg by [...] on file Legal Sex Female 6:16 AM REIMBURSEMENT REPRESENTATIVE Gender Identity Not on file Sexual Orientation Not on file Last Filed Vital Signs Vital Sign Reading Time Taken Comments Blood Pressure 122/88 10/23/2021 2:20 PM REIMBURSEMENT REPRESENTATIVE Pulse 94 10/23/2021 2:20 PM REIMBURSEMENT REPRESENTATIVE Temperature 36.8 C (98.3 F) 10/23/2021 2:20 PM REIMBURSEMENT REPRESENTATIVE Respiratory Rate 16 10/23/2021 2:20 PM REIMBURSEMENT REPRESENTATIVE Oxygen Saturation 97% 10/23/2021 2:20 PM REIMBURSEMENT REPRESENTATIVE Inhaled Oxygen Concentration - - Weight 81.6 kg (180 lb) 10/23/2021 2:20 PM REIMBURSEMENT REPRESENTATIVE Height 165.1 cm (5' 5) 10/23/2021 2:20 PM REIMBURSEMENT REPRESENTATIVE Body Mass Index 29.95 10/23/2021 2:20 PM REIMBURSEMENT REPRESENTATIVE Plan of Treatment Health Maintenance Due Date [...] Tdap) 1974 PNEUMOCOCCAL VACCINE 50+ (1 of 2 - PCV) 1974 ZOSTER VACCINE (1 of 2) 2005 Respiratory Syncytial Virus (RSV) Vaccine Pt: or over 60 yrs (1 - Risk 60-74 years 1-dose series) 2015 SCREENING FOR DIABETES 10/23/2021 DEPRESSION SCREENING 11/11/2024 COVID-19 VACCINE (3 - season) 2025 03/09/2021, 02/08/2021 INFLUENZA VACCINE (#1) 2025 0, 08/12/2018, 08/09/2017, Additional history exists HEPATITIS B VACCINE Aged Out No longe [...] patient's age to complete this topic Insurance MEDICARE [facility] Care Teams Owner Manager Relationship Specialty Start Date End Date Raya Cannon DO [address] [place] [address] [place] [id number] PCP - General Family Medicine 10/23/21
[2025-08-28 18:35] VITALS: BP 107/71; PULSE 92; RESP 18; TEMP 36.9; O2SAT 100
[2025-08-28 19:36] VITALS: BP 132/72; PULSE 74; RESP 16; O2SAT 99
--- NOTE | 2025-08-28 20:24 | ED.UPPEXIN ---
HPI - Extremity Injury (Upper) General Chief Complaint: Extremity Injury, Upper Stated Complaint: gen. pain, left shoulder pain Time Seen by Provider: 08/28/25 19:39 Source: patient and family Mode of arrival: ambulatory Limitations: no limitations History of Present Illness HPI narrative: This is a 70-year-old female with history of adhesive capsulitis of the right shoulder, hypertension who presents to the ED for shoulder pain. Patient states that she was pushing her in a wheelchair a few days ago when she felt a couple pops in her left shoulder. Since then, she has had a nodule to the left shoulder and pain with range of motion. She denies falling. Related Data Home Medications ?Medication ?Instructions ?Recorded ?Confirmed ?Last Taken ?Type acetaminophen 650 mg 650 mg PO Q12H 06/13/23 10/16/23 Unknown History tablet,extended release (Tylenol Arthritis Pain) apixaban 5 mg tablet 5 mg PO BID 06/13/23 10/16/23 Unknown History cholecalciferol (vitamin D3) 25 25 mcg PO DAILY 06/13/23 10/16/23 Unknown History mcg (1,000 unit) capsule cranberry fruit 400 mg capsule 400 mg PO DAILY 06/13/23 10/16/23 Unknown History cyclobenzaprine 10 mg tablet 10 mg PO TID 06/13/23 10/16/23 Unknown History digestive enzymes 1 cap PO DAILY 06/13/23 10/16/23 Unknown History docusate sodium 100 mg capsule 100 mg PO DAILY 06/13/23 10/16/23 Unknown History ferrous sulfate 325 mg (65 mg 325 mg PO DAILY 06/13/23 10/16/23 Unknown History iron) tablet gabapentin 100 mg capsule 100 mg PO DAILY 06/13/23 10/16/23 Unknown History hydrocodone 5 mg-acetaminophen 325 1 tablet PO QHS PRN 06/13/23 10/16/23 Unknown History mg tablet lisinopril 5 mg tablet 5 mg PO DAILY 06/13/23 10/16/23 Unknown History ubhilzuvnzov-nppomnjy-ptmy tablet PO 06/13/23 10/16/23 Unknown History fumarate 18 mg-folic acid 400 mcg tablet (One-A-Day Women's Complete) naloxone 0.4 mg/mL injection 0.4 mg IM Q2M PRN 06/13/23 10/16/23 Unknown History syringe naproxen sodium 220 mg tablet 220 mg PO BID PRN 06/13/23 10/16/23 Unknown History (Flanax (naproxen)) rosuvastatin 10 mg tablet 10 mg PO DAILY 06/13/23 10/16/23 Unknown History ondansetron HCl 4 mg tablet 4 mg PO Q8H 10/16/23 10/16/23 Unknown History torsemide 20 mg tablet 20 mg PO QAM 10/16/23 10/16/23 Unknown History Allergies Allergy/AdvReac Type Severity Reaction Status Date / Time tetracycline Allergy Unknown Swelling Verified 08/28/25 20:05 pancrelipase, porcine Allergy Other Verified 08/28/25 20:05 (pancrelipase) fentanyl AdvReac Confusion Verified 08/28/25 20:05 Review of Systems Review of Systems: Gen.: Denies fevers or chills Eyes: Denies eye pain or visual change ENT: Denies congestion Respiratory: Denies shortness of breath or cough CV: Denies chest pain or palpitations GI: Denies abdominal pain nausea, emesis or diarrhea denies burning, urgency, frequency or hematuria Musculoskeletal: As per HPI Neuro: Denies numbness, tingling, weakness or focal weakness Skin: Denies rash Except as documented, all other systems reviewed and negative PMFSH Past Medical History Medical History History of sepsis Adhesive capsulitis of right shoulder Right rotator cuff tear GERD (gastroesophageal reflux disease) DVT (deep venous thrombosis) Surgical History Surgical History History of surgery on lower extremity History of back surgery History of hysterectomy History of cholecystectomy Family History Family History Mother Lung cancer Father Alcoholism Social History Social History Smoking status: Never smoker Alcohol intake: never Substance use: never Lack of Transportation: No Lack of Food: Never True Current Housing: I Have Housing Concerned About Future Housing: No Difficulty Paying Gas/Electric Bills: No Difficulty Paying for Meds: No Currently Unemployed: No Education: High School Diploma/GED Difficulty w/ Childcare or Family Care: No Living arrangements: with family Occupation/Education: retired Exam Narrative: APPEARANCE: No acute distress, nontoxic, resting in bed HEENT: Normocephalic, atraumatic, OMM RESPIRATORY: No respiratory distress CARDIOVASCULAR: Appears well perfused ABDOMINAL: Nondistended MUSCULOSKELETAl: Nodule over the AC joint on the left shoulder with so she had tenderness palpation, there is also tenderness palpation over the left trapezius muscle. No bony tenderness. NEURO: Awake and alert. SKIN:: Warm, dry. No rashes lesions or abrasions PSYCHIATRIC: Normal affect/mood, Course Vital Signs Vital signs: Vital Signs Temperature 98.4 F 08/28/25 18:35 Pulse Rate 92 08/28/25 18:35 Respiratory Rate 18 08/28/25 18:35 Blood Pressure 107/71 08/28/25 18:35 Pulse Oximetry 100 08/28/25 18:35 Oxygen Delivery Room Air 08/28/25 18:35 Temperature 98.3 F 08/28/25 20:58 Pulse Rate 77 08/28/25 20:58 Respiratory Rate 19 08/28/25 20:58 Blood Pressure 129/82 08/28/25 20:58 Pulse Oximetry 100 08/28/25 20:58 Oxygen Delivery Room Air 08/28/25 18:35 MDM - Extremity Injury (Upper) MDM Narrative Medical decision making narrative: A 70-year-old female presenting for left shoulder injury after pushing her in a wheelchair. On initial evaluation, patient was in no acute distress, afebrile, hemodynamically stable. She did have a nodule over her left shoulder that was tender to palpation over the AC joint. There is also associated tenderness over the left trapezius muscle. No bony tenderness over the humerus or clavicle. X-ray left shoulder was obtained which showed no evidence of fractures or dislocations. Patient may have sprained her shoulder with possible torn ligament or torn muscle. Patient was placed in a sling for comfort. She was educated on Tylenol use. She ready has Flexeril at home which I advised her to continue using as previously prescribed. She is given referral to Orthopedic surgery for further evaluation. Patient was agreeable to this plan. Given strict return precautions. Differential Diagnosis Differential diagnosis: Likely other (Fracture, sprain, strain, dislocation) Medical Records Attestation: I reviewed the patient's medical records. Imaging Data Attestation: I personally reviewed and interpreted this imaging study as follows: Radiologist's impression: Impressions Shoulder X-Ray 08/28/25 19:52 Impression: No acute fracture or malalignment. Discharge Plan Discharge Clinical Impression: Shoulder sprain Patient Disposition: Home Condition: Stable Instructions: Antibiotic Form, How to Use a Sling (ED), Shoulder Sprain (ED) Additional Instructions: You may have sprained her shoulder or torn a muscle or ligament. This will require further evaluation with an MRI. Your given a referral to Dr. Springer, orthopedic surgery, call his office on Saturday to schedule appointment. You may take Tylenol for the pain. You may take your felexeril as previously prescribed. You were given a prescription for Lidoderm please take this as prescribed. Return to the ED for any new or worsening symptoms. Patient Language: Telugu Prescriptions: New lidocaine [Lidoderm] 5 % adhesive patch,medicated 1 patch topical DAILY Qty: 15 0RF Rx Instructions: leave on most painful area for up to 12 hrs No Action ondansetron HCl 4 mg tablet 4 mg PO Q8H torsemide 20 mg tablet 20 mg PO QAM apixaban 5 mg tablet 5 mg PO BID cranberry fruit 400 mg capsule 400 mg PO DAILY Rx Instructions: administer with a meal cyclobenzaprine 10 mg tablet 10 mg PO TID digestive enzymes Capsule 1 cap PO DAILY Rx Instructions: administer with food; swallow whole; do not crush/chew/dissolve/break/cut docusate sodium 100 mg capsule 100 mg PO DAILY ferrous sulfate 325 mg (65 mg iron) tablet 325 mg PO DAILY gabapentin 100 mg capsule 100 mg PO DAILY hydrocodone-acetaminophen 5-325 mg tablet 1 tablet PO QHS PRN lisinopril 5 mg tablet 5 mg PO DAILY naloxone 0.4 mg/mL syringe 0.4 mg IM Q2M PRN Rx Instructions: NTExceed 10 mg total dose/episode naproxen sodium [Flanax (naproxen)] 220 mg tablet 220 mg PO BID PRN One-A-Day Women's Complete 18 mg iron- 400 mcg tablet PO rosuvastatin 10 mg tablet 10 mg PO DAILY acetaminophen [Tylenol Arthritis Pain] 650 mg tablet extended release 650 mg PO Q12H cholecalciferol (vitamin D3) 25 mcg (1,000 unit) capsule 25 mcg PO DAILY dicyclomine 20 mg tablet 20 mg PO TID PRN (Reason: abdominal pain) Qty: 20 0RF ondansetron 4 mg tablet,disintegrating 4 mg PO Q8H PRN (Reason: nausea and vomiting) Qty: 10 0RF tramadol 50 mg tablet 50 mg PO Q6H PRN (Reason: pain) Qty: 15 0RF lidocaine 5 % adhesive patch,medicated 1 patch topical DAILY PRN (Reason: pain) Qty: 15 0RF Rx Instructions: leave on most painful area for up to 12 hrs prednisone 20 mg tablet 40 mg PO DAILY 4 Days Qty: 8 0RF albuterol sulfate 90 mcg/actuation HFA aerosol inhaler 2 puff inhalation QID PRN (Reason: shortness of breath or wheezing) Qty: 8.5 0RF Follow-up/Referrals: Aniceto Springer MD [Physician, Orthopedics] Misty,LO De La Cruz [Primary Care Provider, Unknown]
[2025-08-28 20:55] VITALS: BP 129/82; PULSE 77; RESP 19; TEMP 36.8; O2SAT 100
[2025-08-28 20:58] VITALS: BP 129/82; PULSE 77; RESP 19; TEMP 36.8; O2SAT 100
== END 2025-08-28 21:01 | disposition home or self-care (01) ==
PROVIDERS: Emergency Provider Student in an Organized Health Care Education/Training Program; PCP Nurse Practitioner
DX: S43.402A Unspecified sprain of left shoulder joint, initial encounter (principal); K21.9 Gastro-esophageal reflux disease without esophagitis; Z86.718 Personal history of other venous thrombosis and embolism; Z90.710 Acquired absence of both cervix and uterus; Z90.49 Acquired absence of other specified parts of digestive tract; X50.0XXA Overexertion from strenuous movement or load, initial encounter
CPT/HCPCS: 73030; 99283; A4565